=== PATIENT | male | born 1995 | race Caucasian/White ===

== ENCOUNTER 2019-08-23 15:58 | Inpatient (IN) | payer MEDICAID ==
[~2019-08-23] VITALS: Ht 167.6 cm; Wt 73.5 kg
[2019-08-23] MEDS ORDERED: SERT50TA12 PO (16:59)
[2019-08-23] MEDS ORDERED: RISP.5 PO (16:59)
[2019-08-23 17:25] LABS: BASOPHILS % (AUTO) 0.5 % (0.0-2.0); EOSINOPHILS % (AUTO) 0.3 % (1.0-6.0); HEMATOCRIT 44.8 % (41-53); HEMOGLOBIN 15.1 g/dL (13.5-17.5); LYMPHOCYTES # (AUTO) 2.3 K/uL (1.0-4.8); LYMPHOCYTES % (AUTO) 14.3 % (22.0-44.0); MEAN CORPUSCULAR HEMOGLOBIN 29.4 pg (26.0-34.0); MEAN CORPUSCULAR HGB CONC 33.7 G/dL (31.0-37.0); MEAN CORPUSCULAR VOLUME 87 fL (80-100); MONOCYTES % (AUTO) 6.5 % (2.0-9.0); NEUTROPHILS # (AUTO) 12.7 K/uL (1.8-7.7); NEUTROPHILS % (AUTO) 78.4 % (40.0-70.0); PLATELET COUNT (AUTO) 298 K/uL (150-450); RED BLOOD CELL COUNT(AUTO) 5.13 MIL/uL (4.50-5.90); RED CELL DISTRIBUTION WIDTH 13.9 % (11.5-14.5)
[2019-08-23 17:44] LABS: ANION GAP 13 mmol/L (8-16); CALCIUM, TOTAL 9.7 mg/dL (8.8-10.5); CARBON DIOXIDE 27 mmol/L (22-29); CHLORIDE 104 mmol/L (98-107); CREATININE 1.05 mg/dL (0.60-1.30); GLOMERULAR FILTR. RATE CALC > 60 mL/min (>60); GLUCOSE,RANDOM 98 mg/dL (70-110); POTASSIUM 4.1 mmol/L (3.5-5.1); SODIUM SERUM 144 mmol/L (136-145); UREA NITROGEN, BLOOD 19 mg/dL (7-18)
[2019-08-23 17:48] LABS: ALANINE AMINOTRANSFERASE 73 U/L (12-78); ALBUMIN 4.2 g/dL (3.4-5.0); ALKALINE PHOSPHATASE 62 U/L (46-116); ASPARTATE AMINOTRANSFERASE 66 U/L (15-37); BILIRUBIN,TOTAL 0.4 mg/dL (0.1-1.0); TOTAL PROTEIN, SERUM 8.2 g/dL (6.4-8.2)
[2019-08-23] MEDS ORDERED: TUBERCULIN, PURIFIED PROTEIN DERIVATIVE 5 TU/0.1 ML SYRINGE ID ONE (18:00)
[2019-08-23] MEDS ORDERED: GuaiFENesin/D-METHORPHAN [SUGAR-FREE] 200-20MG/10 ML SYRUP UDCUP PO PRN (18:00)
[2019-08-23] MEDS ORDERED: OLANZapine 5 MG RAPDIS TABLET PO PRN (18:00)
[2019-08-23] MEDS ORDERED: HydrOXYzine PAMOATE 50 MG CAPSULE PO PRN (18:00)
[2019-08-23] MEDS ORDERED: PROMETHAZINE HCL 25 MG TABLET PO PRN (18:00)
[2019-08-23] MEDS ORDERED: MAG HYDROX/AL HYDROX/SIMETH ES 30 ML SUSPENSION UDCUP PO PRN (18:00)
[2019-08-23] MEDS ORDERED: MAGNESIUM HYDROXIDE SUSPENSION 30 ML UDCUP PO PRN (18:00)
[2019-08-23 20:51] VITALS: BP 136/73
[2019-08-23] MEDS: OLANZapine 5 MG RAPDIS TABLET PO SCH (21:01)
[2019-08-23] MEDS: LORazepam 2 MG TABLET PO PRN (21:01)
[2019-08-23] MEDS: THIAMINE HCL 100 MG TABLET PO SCH (21:01)
[2019-08-24] MEDS ORDERED: INFLUENZA VIRUS VACCINE QVS 2019-20 (3YR+)/PF 60 MCG/0.5 ML SYRINGE IM ONE (04:30)
[2019-08-24 05:50] VITALS: BP 100/56
[2019-08-24 07:51] LABS: HEMOGLOBIN A1C 5.4 % (4.5-6.2)
[2019-08-24 08:15] VITALS: BP 137/76
[2019-08-24 08:15] LABS: CHOL/HDL RATIO 2.6 (4.2-7.3); FREE T4 (FREE THYROXINE) 1.19 ng/dL (0.76-1.46); THYROID STIMULATING HORMONE 3.02 uIU/mL (0.36-3.74)
[2019-08-24] MEDS: NALTREXONE HCL 50 MG TABLET PO SCH (08:40)
[2019-08-24] MEDS: FOLIC ACID 1 MG TABLET PO SCH (08:40)
[2019-08-24] MEDS: THIAMINE HCL 100 MG TABLET PO SCH ×2 (08:40→16:26)
[2019-08-24] MEDS: MULTIVITAMINS WITH MINERALS, THERAPEUTIC TABLET PO SCH (08:40)
[2019-08-24 16:00] VITALS: BP 121/73
[2019-08-24] MEDS: LORazepam 2 MG TABLET PO PRN (16:26)
[2019-08-24] MEDS: OLANZapine 5 MG RAPDIS TABLET PO SCH (21:01)
[2019-08-25 02:16] VITALS: BP 111/73
[2019-08-25 08:12] VITALS: BP 103/51
[2019-08-25 08:20] LABS: BASOPHILS % (AUTO) 0.9 % (0.0-2.0); HEMOGLOBIN 14.8 g/dL (13.5-17.5); LYMPHOCYTES # (AUTO) 2.2 K/uL (1.0-4.8); LYMPHOCYTES % (AUTO) 22.8 % (22.0-44.0); MEAN CORPUSCULAR HEMOGLOBIN 29.6 pg (26.0-34.0); MEAN CORPUSCULAR HGB CONC 33.6 G/dL (31.0-37.0); MEAN CORPUSCULAR VOLUME 88 fL (80-100); MONOCYTES # (AUTO) 0.6 K/uL (0.1-1.0); MONOCYTES % (AUTO) 6.4 % (2.0-9.0); NEUTROPHILS # (AUTO) 6.3 K/uL (1.8-7.7); NEUTROPHILS % (AUTO) 66.9 % (40.0-70.0); PLATELET COUNT (AUTO) 237 K/uL (150-450); RED CELL DISTRIBUTION WIDTH 13.9 % (11.5-14.5)
[2019-08-25] MEDS: NALTREXONE HCL 50 MG TABLET PO SCH (08:38)
[2019-08-25] MEDS: THIAMINE HCL 100 MG TABLET PO SCH ×2 (08:38→16:30)
[2019-08-25] MEDS: MULTIVITAMINS WITH MINERALS, THERAPEUTIC TABLET PO SCH (08:38)
[2019-08-25] MEDS: ATOMOXETINE HCL 40 MG CAPSULE PO SCH (08:38)
[2019-08-25] MEDS: FOLIC ACID 1 MG TABLET PO SCH (08:39)
[2019-08-25 16:00] VITALS: BP 117/79
[2019-08-25] MEDS: LORazepam 2 MG TABLET PO PRN (16:30)
[2019-08-25] MEDS: OLANZapine 5 MG RAPDIS TABLET PO SCH (20:46)
[2019-08-26 03:48] VITALS: BP 118/73
[2019-08-26 08:00] VITALS: BP 111/68
[2019-08-26] MEDS: MULTIVITAMINS WITH MINERALS, THERAPEUTIC TABLET PO SCH (08:23)
[2019-08-26] MEDS: THIAMINE HCL 100 MG TABLET PO SCH ×2 (08:23→16:13)
[2019-08-26] MEDS: BuPROPion HCL XL 150 MG ER TABLET PO SCH (08:23)
[2019-08-26] MEDS: FOLIC ACID 1 MG TABLET PO SCH (08:23)
[2019-08-26] MEDS: NALTREXONE HCL 50 MG TABLET PO SCH (08:23)
[2019-08-26] MEDS: ATOMOXETINE HCL 40 MG CAPSULE PO SCH (08:24)
[2019-08-26 16:11] VITALS: BP 129/76
[2019-08-26] MEDS: LORazepam 2 MG TABLET PO PRN (16:13)
[2019-08-26 17:00] VITALS: BP 109/78
[2019-08-26] MEDS: GABAPENTIN 300 MG CAPSULE PO SCH ×2 (17:58→21:05)
[2019-08-26] MEDS: ZOLPIDEM TARTRATE 10 MG TABLET PO PRN (20:41)
[2019-08-26] MEDS: OLANZapine 10 MG RAPDIS TABLET PO SCH (21:05)
[2019-08-27 04:15] VITALS: BP 137/65
[2019-08-27] MEDS: MULTIVITAMINS WITH MINERALS, THERAPEUTIC TABLET PO SCH (08:08)
[2019-08-27] MEDS: ATOMOXETINE HCL 40 MG CAPSULE PO SCH (08:08)
[2019-08-27] MEDS: FOLIC ACID 1 MG TABLET PO SCH (08:08)
[2019-08-27] MEDS: NALTREXONE HCL 50 MG TABLET PO SCH (08:08)
[2019-08-27] MEDS: BuPROPion HCL XL 150 MG ER TABLET PO SCH (08:08)
[2019-08-27] MEDS: GABAPENTIN 300 MG CAPSULE PO SCH ×4 (08:08→21:25)
[2019-08-27] MEDS: THIAMINE HCL 100 MG TABLET PO SCH ×2 (08:08→16:06)
[2019-08-27 08:27] VITALS: BP 110/76
[2019-08-27] MEDS: LORazepam 2 MG TABLET PO PRN (16:06)
[2019-08-27 16:13] VITALS: BP 130/80
[2019-08-27] MEDS: OLANZapine 10 MG RAPDIS TABLET PO SCH (21:25)
[2019-08-28 06:39] VITALS: BP 121/80
[2019-08-28 08:00] VITALS: BP 153/117
[2019-08-28] MEDS: MULTIVITAMINS WITH MINERALS, THERAPEUTIC TABLET PO SCH (08:04)
[2019-08-28] MEDS: NALTREXONE HCL 50 MG TABLET PO SCH (08:04)
[2019-08-28] MEDS: FOLIC ACID 1 MG TABLET PO SCH (08:04)
[2019-08-28] MEDS: GABAPENTIN 300 MG CAPSULE PO SCH ×4 (08:04→20:46)
[2019-08-28] MEDS: BuPROPion HCL XL 150 MG ER TABLET PO SCH ×2 (08:04→09:05)
[2019-08-28] MEDS: THIAMINE HCL 100 MG TABLET PO SCH ×2 (08:04→16:11)
[2019-08-28] MEDS: ATOMOXETINE HCL 10 MG CAPSULE PO SCH (08:05)
[2019-08-28] MEDS: NICOTINE 21 MG/24 HOUR PATCH TD PRN (09:02)
[2019-08-28 16:09] VITALS: BP 125/79
[2019-08-28] MEDS: LORazepam 2 MG TABLET PO PRN (16:11)
[2019-08-28] MEDS: OLANZapine 10 MG RAPDIS TABLET PO SCH (20:46)
[2019-08-28] MEDS: ZOLPIDEM TARTRATE 10 MG TABLET PO PRN (20:47)
[2019-08-29] MEDS: NALTREXONE HCL 50 MG TABLET PO SCH (09:48)
[2019-08-29] MEDS: FOLIC ACID 1 MG TABLET PO SCH (09:48)
[2019-08-29] MEDS: THIAMINE HCL 100 MG TABLET PO SCH ×2 (09:48→16:24)
[2019-08-29] MEDS: MULTIVITAMINS WITH MINERALS, THERAPEUTIC TABLET PO SCH (09:49)
[2019-08-29] MEDS: BuPROPion HCL XL 150 MG ER TABLET PO SCH (09:49)
[2019-08-29] MEDS: GABAPENTIN 300 MG CAPSULE PO SCH ×4 (09:49→20:31)
[2019-08-29] MEDS: ATOMOXETINE HCL 10 MG CAPSULE PO SCH (09:50)
[2019-08-29 16:05] VITALS: BP 107/68
[2019-08-29] MEDS: LORazepam 2 MG TABLET PO PRN (16:25)
[2019-08-29] MEDS: ZOLPIDEM TARTRATE 10 MG TABLET PO PRN (20:31)
[2019-08-29] MEDS: OLANZapine 10 MG RAPDIS TABLET PO SCH (20:31)
[2019-08-30 07:08] VITALS: BP 145/76
[2019-08-30] MEDS: FOLIC ACID 1 MG TABLET PO SCH (08:28)
[2019-08-30] MEDS: NALTREXONE HCL 50 MG TABLET PO SCH (08:28)
[2019-08-30] MEDS: ATOMOXETINE HCL 10 MG CAPSULE PO SCH (08:28)
[2019-08-30] MEDS: BuPROPion HCL XL 150 MG ER TABLET PO SCH (08:28)
[2019-08-30] MEDS: MULTIVITAMINS WITH MINERALS, THERAPEUTIC TABLET PO SCH (08:28)
[2019-08-30] MEDS: GABAPENTIN 300 MG CAPSULE PO SCH ×4 (08:28→20:38)
[2019-08-30] MEDS: THIAMINE HCL 100 MG TABLET PO SCH ×2 (08:29→16:47)
[2019-08-30] MEDS: NICOTINE 21 MG/24 HOUR PATCH TD PRN (13:25)
[2019-08-30 16:07] VITALS: BP 116/68
[2019-08-30] MEDS: OLANZapine 10 MG RAPDIS TABLET PO SCH (20:38)
[2019-08-30] MEDS: ZOLPIDEM TARTRATE 10 MG TABLET PO PRN (20:38)
[2019-08-31 02:24] VITALS: BP 107/55
[2019-08-31 08:23] VITALS: BP 135/97
[2019-08-31] MEDS: NALTREXONE HCL 50 MG TABLET PO SCH (08:52)
[2019-08-31] MEDS: GABAPENTIN 300 MG CAPSULE PO SCH ×4 (08:56→20:24)
[2019-08-31] MEDS: MULTIVITAMINS WITH MINERALS, THERAPEUTIC TABLET PO SCH (08:56)
[2019-08-31] MEDS: THIAMINE HCL 100 MG TABLET PO SCH ×2 (08:57→17:31)
[2019-08-31] MEDS: FOLIC ACID 1 MG TABLET PO SCH (08:57)
[2019-08-31] MEDS: ATOMOXETINE HCL 10 MG CAPSULE PO SCH (09:04)
[2019-08-31] MEDS: BuPROPion HCL XL 150 MG ER TABLET PO SCH (09:05)
[2019-08-31 16:15] VITALS: BP 123/78
[2019-08-31] MEDS: LORazepam 2 MG TABLET PO PRN (17:32)
[2019-08-31] MEDS: NICOTINE 21 MG/24 HOUR PATCH TD PRN (18:13)
[2019-08-31] MEDS: OLANZapine 10 MG RAPDIS TABLET PO SCH (20:24)
[2019-08-31] MEDS: ZOLPIDEM TARTRATE 10 MG TABLET PO PRN (21:03)
[2019-09-01 00:13] VITALS: BP 121/80
[2019-09-01 08:10] VITALS: BP 125/80
[2019-09-01] MEDS ORDERED: ATOMOXETINE HCL 40 MG CAPSULE PO SCH (09:00)
[2019-09-01] MEDS: ACETAMINOPHEN 325 MG TABLET PO PRN ×2 (09:10→14:50)
[2019-09-01] MEDS: MULTIVITAMINS WITH MINERALS, THERAPEUTIC TABLET PO SCH (09:10)
[2019-09-01] MEDS: FOLIC ACID 1 MG TABLET PO SCH (09:11)
[2019-09-01] MEDS: GABAPENTIN 300 MG CAPSULE PO SCH ×4 (09:11→20:48)
[2019-09-01] MEDS: THIAMINE HCL 100 MG TABLET PO SCH ×2 (09:11→16:31)
[2019-09-01] MEDS: BuPROPion HCL XL 150 MG ER TABLET PO SCH (09:13)
[2019-09-01] MEDS: NALTREXONE HCL 50 MG TABLET PO SCH (09:13)
[2019-09-01 16:13] VITALS: BP 122/68
[2019-09-01] MEDS: LORazepam 2 MG TABLET PO PRN (16:32)
[2019-09-01] MEDS: OLANZapine 10 MG RAPDIS TABLET PO SCH (20:48)
[2019-09-01] MEDS: ZOLPIDEM TARTRATE 10 MG TABLET PO PRN (20:48)
[2019-09-02 05:57] VITALS: BP 105/65
[2019-09-02 08:40] VITALS: BP 146/81
[2019-09-02] MEDS: BuPROPion HCL XL 150 MG ER TABLET PO SCH (09:05)
[2019-09-02] MEDS: GABAPENTIN 300 MG CAPSULE PO SCH (09:05)
[2019-09-02] MEDS: MULTIVITAMINS WITH MINERALS, THERAPEUTIC TABLET PO SCH (09:05)
[2019-09-02] MEDS: FOLIC ACID 1 MG TABLET PO SCH (09:06)
[2019-09-02] MEDS: NALTREXONE HCL 50 MG TABLET PO SCH (09:07)
[2019-09-02] MEDS: ATOMOXETINE HCL 25 MG CAPSULE PO SCH (09:07)
[2019-09-02] MEDS: THIAMINE HCL 100 MG TABLET PO SCH (09:07)
[2019-09-02] MEDS: ACETAMINOPHEN 325 MG TABLET PO PRN (10:24)
[2019-09-02] MEDS: LORazepam 2 MG TABLET PO PRN ×2 (12:54→16:55)
[2019-09-02] MEDS: GABAPENTIN 400 MG CAPSULE PO SCH ×3 (13:13→20:51)
[2019-09-02] MEDS ORDERED: BENZOCAINE/MENTHOL LOZENGE PO PRN (15:00)
[2019-09-02 16:59] VITALS: BP 133/65
[2019-09-02] MEDS ORDERED: AZITHROMYCIN 250 MG TABLET PO ONE (18:00)
[2019-09-02] MEDS: OLANZapine 10 MG RAPDIS TABLET PO SCH (20:51)
[2019-09-02] MEDS: ZOLPIDEM TARTRATE 10 MG TABLET PO PRN (20:52)
[2019-09-03 06:24] VITALS: BP 128/72
[2019-09-03] MEDS: BuPROPion HCL XL 150 MG ER TABLET PO SCH (08:45)
[2019-09-03] MEDS: GABAPENTIN 400 MG CAPSULE PO SCH ×4 (08:45→20:14)
[2019-09-03] MEDS: AZITHROMYCIN 250 MG TABLET PO SCH (08:45)
[2019-09-03] MEDS: NALTREXONE HCL 50 MG TABLET PO SCH (08:45)
[2019-09-03] MEDS: ATOMOXETINE HCL 25 MG CAPSULE PO SCH (08:45)
[2019-09-03 08:47] VITALS: BP 129/78
[2019-09-03] MEDS: MULTIVITAMINS WITH MINERALS, THERAPEUTIC TABLET PO SCH (08:50)
[2019-09-03] MEDS: LORazepam 2 MG TABLET PO PRN ×2 (12:05→16:50)
[2019-09-03 16:00] VITALS: BP 111/90
[2019-09-03] MEDS: GuanFACINE HCL 1 MG TABLET PO SCH (16:50)
[2019-09-03] MEDS: NICOTINE 21 MG/24 HOUR PATCH TD PRN (16:51)
[2019-09-03] MEDS: OLANZapine 10 MG RAPDIS TABLET PO SCH (20:14)
[2019-09-03] MEDS: ZOLPIDEM TARTRATE 10 MG TABLET PO PRN (20:14)
[2019-09-04 04:41] VITALS: BP 125/76
[2019-09-04 06:00] VITALS: BP 131/77
[2019-09-04] MEDS: ACETAMINOPHEN 325 MG TABLET PO PRN (06:04)
[2019-09-04 08:31] VITALS: BP 131/77
[2019-09-04] MEDS: GABAPENTIN 400 MG CAPSULE PO SCH ×4 (08:54→21:25)
[2019-09-04] MEDS: ATOMOXETINE HCL 25 MG CAPSULE PO SCH (08:54)
[2019-09-04] MEDS: NALTREXONE HCL 50 MG TABLET PO SCH (08:54)
[2019-09-04] MEDS: GuanFACINE HCL 1 MG TABLET PO SCH ×3 (08:54→16:40)
[2019-09-04] MEDS: AZITHROMYCIN 250 MG TABLET PO SCH (08:54)
[2019-09-04] MEDS: MULTIVITAMINS WITH MINERALS, THERAPEUTIC TABLET PO SCH (08:54)
[2019-09-04] MEDS: BuPROPion HCL XL 150 MG ER TABLET PO SCH (08:54)
[2019-09-04 09:00] VITALS: BP 123/60
[2019-09-04 16:07] VITALS: BP 125/63
[2019-09-04] MEDS: LORazepam 2 MG TABLET PO PRN (16:39)
[2019-09-04] MEDS: ZOLPIDEM TARTRATE 10 MG TABLET PO PRN (21:26)
[2019-09-04] MEDS: OLANZapine 10 MG RAPDIS TABLET PO SCH (21:28)
[2019-09-05 06:21] VITALS: BP 137/68
[2019-09-05 08:15] VITALS: BP 129/63
[2019-09-05] MEDS: NALTREXONE HCL 50 MG TABLET PO SCH (08:55)
[2019-09-05] MEDS: GuanFACINE HCL 1 MG TABLET PO SCH ×3 (08:55→16:20)
[2019-09-05] MEDS: BuPROPion HCL XL 150 MG ER TABLET PO SCH (08:55)
[2019-09-05] MEDS: ATOMOXETINE HCL 25 MG CAPSULE PO SCH (08:55)
[2019-09-05] MEDS: GABAPENTIN 400 MG CAPSULE PO SCH ×4 (08:55→20:50)
[2019-09-05] MEDS: MULTIVITAMINS WITH MINERALS, THERAPEUTIC TABLET PO SCH (08:55)
[2019-09-05] MEDS: AZITHROMYCIN 250 MG TABLET PO SCH (08:59)
[2019-09-05] MEDS: LOPERAMIDE HCL 2 MG CAPSULE PO PRN ×2 (09:53→17:00)
[2019-09-05] MEDS: LORazepam 2 MG TABLET PO PRN ×2 (12:34→17:01)
[2019-09-05 16:45] VITALS: BP 112/69
[2019-09-05] MEDS: LACTOBACILLUS ACIDOPHILUS/BULGARICUS TABLET PO SCH (20:50)
[2019-09-05] MEDS: ZOLPIDEM TARTRATE 10 MG TABLET PO PRN (20:51)
[2019-09-05] MEDS: OLANZapine 10 MG RAPDIS TABLET PO SCH (20:51)
[2019-09-06 02:00] VITALS: BP 121/67
[2019-09-06 08:20] VITALS: BP 149/67
[2019-09-06] MEDS: MULTIVITAMINS WITH MINERALS, THERAPEUTIC TABLET PO SCH (09:56)
[2019-09-06] MEDS: ATOMOXETINE HCL 25 MG CAPSULE PO SCH (09:57)
[2019-09-06] MEDS: LACTOBACILLUS ACIDOPHILUS/BULGARICUS TABLET PO SCH ×2 (09:57→17:42)
[2019-09-06] MEDS: BuPROPion HCL XL 150 MG ER TABLET PO SCH (09:58)
[2019-09-06] MEDS: GABAPENTIN 400 MG CAPSULE PO SCH ×3 (09:59→17:42)
[2019-09-06] MEDS: NALTREXONE HCL 50 MG TABLET PO SCH (10:00)
[2019-09-06] MEDS: GuanFACINE HCL 1 MG TABLET PO SCH ×3 (10:00→17:42)
[2019-09-06] MEDS: AZITHROMYCIN 250 MG TABLET PO SCH (10:01)
[2019-09-06] MEDS ORDERED: BUPR-47 PO (15:03)
[2019-09-06] MEDS ORDERED: GABA-533 PO (15:03)
[2019-09-06] MEDS ORDERED: OLAN10TA22 PO (15:03)
[2019-09-06] MEDS ORDERED: ATOM25CA8 PO (15:03)
[2019-09-06] MEDS ORDERED: NALT50TA PO (15:03)
[2019-09-06] MEDS ORDERED: GUAN1TAB2 PO (15:03)
[2019-09-06 16:14] VITALS: BP 112/69
[2019-09-06] MEDS: LOPERAMIDE HCL 2 MG CAPSULE PO PRN (17:43)
== END 2019-09-06 18:10 | disposition home or self-care (01) | DRG 750 ==
LOC: EMS 16:03 → B3A 18:36
PROVIDERS: ADMIT Psychiatry & Neurology Psychiatry; ATTEND Psychiatry & Neurology Psychiatry
DX: F25.0 Schizoaffective disorder, bipolar type (principal); R45.850 Homicidal ideations; F15.90 Other stimulant use, unspecified, uncomplicated; F41.9 Anxiety disorder, unspecified; F25.1 Schizoaffective disorder, depressive type; F17.210 Nicotine dependence, cigarettes, uncomplicated; F90.9 Attention-deficit hyperactivity disorder, unspecified type; F19.20 Other psychoactive substance dependence, uncomplicated; Z59.0 Homelessness; Z79.899 Other long term (current) drug therapy; Z91.19 Patient's noncompliance with other medical treatment and regimen; Z91.5 Personal history of self-harm; Z28.21 Immunization not carried out because of patient refusal
CPT/HCPCS: 83036; 84439; 84443; 86592; 87081; 90686; G0480

== ENCOUNTER 2020-07-05 13:58 | Inpatient (IN) | payer MEDICAID, OTHER ==
[~2020-07-05] VITALS: Ht 162.6 cm; Wt 81.1 kg
[~2020-07-05 13:58] MED LIST: ATOM25CA8 PO; BUPR-47 PO; GABA-533 PO; GUAN1TAB2 PO; NALT50TA PO; OLAN10TA22 PO
[2020-07-05 15:39] LABS: HEMATOCRIT 45.1 % (41-53); HEMOGLOBIN 15.2 g/dL (13.5-17.5); MEAN CORPUSCULAR HGB CONC 33.7 G/dL (31.0-37.0); MEAN CORPUSCULAR VOLUME 89 fL (80-100); PLATELET COUNT (AUTO) 253 K/uL (150-450); RED BLOOD CELL COUNT(AUTO) 5.06 MIL/uL (4.50-5.90)
[2020-07-05 15:49] LABS: ANION GAP 11 mmol/L (8-16); CALCIUM, TOTAL 9.1 mg/dL (8.8-10.5); CARBON DIOXIDE 28 mmol/L (22-29); CHLORIDE 106 mmol/L (98-107); CREATININE 1.05 mg/dL (0.60-1.30); GLOMERULAR FILTR. RATE CALC > 60 mL/min (>60); GLUCOSE,RANDOM 95 mg/dL (70-110); POTASSIUM 4.4 mmol/L (3.5-5.1); SODIUM SERUM 145 mmol/L (136-145); UREA NITROGEN, BLOOD 16 mg/dL (7-18)
[2020-07-05 15:55] LABS: ALANINE AMINOTRANSFERASE 23 U/L (12-78); ALBUMIN 3.9 g/dL (3.4-5.0); ALKALINE PHOSPHATASE 66 U/L (46-116); ASPARTATE AMINOTRANSFERASE 18 U/L (15-37); BILIRUBIN,TOTAL 0.4 mg/dL (0.1-1.0)
[2020-07-05 17:00] LABS: BAND NEUTROPHILS % (MANUAL) 0 % (0-5)
[2020-07-05 17:01] LABS: BASOPHILS % (MANUAL) 1 % (0-2); EOSINOPHILS % (MANUAL) 1 % (1-6); LYMPHOCYTES % (MANUAL) 24 % (22-44); MONOCYTES % (MANUAL) 5 % (2-9); SEGMENTED NEUTROPHILS % 69 % (40-70)
[2020-07-05] MEDS ORDERED: ZOLPIDEM TARTRATE 10 MG TABLET PO PRN (18:45)
[2020-07-05] MEDS ORDERED: HALOPERIDOL 5 MG TABLET PO PRN (18:45)
[2020-07-05] MEDS ORDERED: LORazepam 2 MG TABLET PO PRN (18:45)
[2020-07-05 19:00] LABS: COVID AG,FIA SOURCE NASOPHARYNGEAL
[2020-07-05 21:39] VITALS: BP 149/86
[2020-07-06 03:44] VITALS: BP 150/86
[2020-07-06 07:13] LABS: CHOL/HDL RATIO 2.9 (4.2-7.3)
[2020-07-06 07:35] LABS: FREE T4 (FREE THYROXINE) 0.96 ng/dL (0.76-1.46); THYROID STIMULATING HORMONE 0.64 uIU/mL (0.36-3.74)
[2020-07-06 08:55] VITALS: BP 145/86
[2020-07-06 16:00] VITALS: BP 125/61
[2020-07-06] MEDS: GABAPENTIN 400 MG CAPSULE PO SCH ×2 (16:55→20:35)
[2020-07-06] MEDS: OLANZapine 5 MG TABLET PO SCH (16:55)
[2020-07-07] MEDS: BuPROPion HCL XL 150 MG ER TABLET PO SCH (09:30)
[2020-07-07] MEDS: OLANZapine 5 MG TABLET PO SCH ×2 (09:30→17:00)
[2020-07-07] MEDS: GABAPENTIN 400 MG CAPSULE PO SCH ×4 (09:31→21:00)
[2020-07-07 09:43] VITALS: BP 125/78
[2020-07-07 16:54] VITALS: BP 156/98
[2020-07-08] MEDS: GABAPENTIN 400 MG CAPSULE PO SCH ×2 (08:37→12:36)
[2020-07-08] MEDS: BuPROPion HCL XL 150 MG ER TABLET PO SCH (08:37)
[2020-07-08] MEDS: OLANZapine 5 MG TABLET PO SCH (08:37)
[2020-07-08] MEDS ORDERED: OLAN5TAB2 PO (13:12)
== END 2020-07-08 14:00 | disposition home or self-care (01) | DRG 750 ==
LOC: EMS 14:05 → 3EI 18:32
PROVIDERS: ADMIT Psychiatry & Neurology Psychiatry; ATTEND Psychiatry & Neurology Psychiatry
DX: F25.0 Schizoaffective disorder, bipolar type (principal); F43.10 Post-traumatic stress disorder, unspecified; G47.00 Insomnia, unspecified; R45.851 Suicidal ideations; F17.210 Nicotine dependence, cigarettes, uncomplicated; Z20.828 Contact with and (suspected) exposure to other viral communicable diseases; F32.9 Major depressive disorder, single episode, unspecified; F41.9 Anxiety disorder, unspecified; R03.0 Elevated blood-pressure reading, without diagnosis of hypertension; F99 Mental disorder, not otherwise specified; R10.13 Epigastric pain; Z79.899 Other long term (current) drug therapy
CPT/HCPCS: 84439; 84443; 87426; G0480

== ENCOUNTER 2020-07-09 17:47 | Inpatient (IN) | payer MEDICAID, OTHER ==
[~2020-07-09] VITALS: Ht 167.6 cm; Wt 82.0 kg
[~2020-07-09 17:47] MED LIST changes: -ATOM25CA8 PO; -GUAN1TAB2 PO; -NALT50TA PO; -OLAN10TA22 PO; +OLAN5TAB2 PO
[2020-07-09] MEDS ORDERED: HALOPERIDOL 5 MG TABLET PO ONE (18:45)
[2020-07-09] MEDS ORDERED: LORazepam 2 MG TABLET PO ONE (18:45)
[2020-07-09 19:18] LABS: BASOPHILS % (AUTO) 0.5 % (0.0-2.0); EOSINOPHILS % (AUTO) 0.1 % (1.0-6.0); HEMATOCRIT 49.3 % (41-53); HEMOGLOBIN 16.7 g/dL (13.5-17.5); LYMPHOCYTES # (AUTO) 2.5 K/uL (1.0-4.8); LYMPHOCYTES % (AUTO) 14.5 % (22.0-44.0); MEAN CORPUSCULAR HGB CONC 33.9 G/dL (31.0-37.0); MEAN CORPUSCULAR VOLUME 88 fL (80-100); MONOCYTES # (AUTO) 1.2 K/uL (0.1-1.0); MONOCYTES % (AUTO) 7.2 % (2.0-9.0); NEUTROPHILS # (AUTO) 13.3 K/uL (1.8-7.7); NEUTROPHILS % (AUTO) 77.7 % (40.0-70.0); PLATELET COUNT (AUTO) 251 K/uL (150-450); RED BLOOD CELL COUNT(AUTO) 5.58 MIL/uL (4.50-5.90); RED CELL DISTRIBUTION WIDTH 13.9 % (11.5-14.5)
[2020-07-09 19:27] LABS: ANION GAP 10 mmol/L (8-16); CARBON DIOXIDE 29 mmol/L (22-29); CHLORIDE 98 mmol/L (98-107); CREATININE 1.19 mg/dL (0.60-1.30); GLOMERULAR FILTR. RATE CALC > 60 mL/min (>60); GLUCOSE,RANDOM 86 mg/dL (70-110); POTASSIUM 4.3 mmol/L (3.5-5.1); SODIUM SERUM 137 mmol/L (136-145); UREA NITROGEN, BLOOD 19 mg/dL (7-18)
[2020-07-09 19:33] LABS: ALANINE AMINOTRANSFERASE 86 U/L (12-78); ALBUMIN 4.4 g/dL (3.4-5.0); ALKALINE PHOSPHATASE 69 U/L (46-116); ASPARTATE AMINOTRANSFERASE 35 U/L (15-37); BILIRUBIN,TOTAL 0.5 mg/dL (0.1-1.0); TOTAL PROTEIN, SERUM 8.2 g/dL (6.4-8.2)
[2020-07-09 20:34] LABS: COVID AG,FIA SOURCE NASOPHARYNGEAL
[2020-07-09 21:04] LABS: CREATINE KINASE, TOTAL ONLY 574 U/L (39-308)
[2020-07-09] MEDS ORDERED: SODIUM CHLORIDE 0.9% 1,000 ML IV ONE (21:45)
[2020-07-09 22:37] LABS: INFLUENZA TYPE A NEGATIVE FOR TYPE A (NEGATIVE); INFLUENZA TYPE B NEGATIVE FOR TYPE B (NEGATIVE)
[2020-07-09] MEDS ORDERED: HALOPERIDOL 5 MG TABLET PO PRN (22:45)
[2020-07-10] MEDS ORDERED: SODIUM CHLORIDE 0.9% 1,000 ML IV ONE (00:45)
[2020-07-10 03:02] LABS: BASOPHILS % (AUTO) 0.7 % (0.0-2.0); HEMATOCRIT 45.1 % (41-53); LYMPHOCYTES # (AUTO) 2.7 K/uL (1.0-4.8); LYMPHOCYTES % (AUTO) 24.4 % (22.0-44.0); MEAN CORPUSCULAR HEMOGLOBIN 29.9 pg (26.0-34.0); MEAN CORPUSCULAR HGB CONC 33.2 G/dL (31.0-37.0); MEAN CORPUSCULAR VOLUME 90 fL (80-100); MONOCYTES % (AUTO) 9.2 % (2.0-9.0); NEUTROPHILS # (AUTO) 6.9 K/uL (1.8-7.7); NEUTROPHILS % (AUTO) 63.7 % (40.0-70.0); PLATELET COUNT (AUTO) 198 K/uL (150-450); RED CELL DISTRIBUTION WIDTH 13.9 % (11.5-14.5)
[2020-07-10 05:19] VITALS: BP 117/72
[2020-07-10] MEDS ORDERED: INFLUENZA VIRUS VACCINE QVS 2020-21 (6MO+)/PF 60 MCG/0.5 ML SYRINGE IM ONE (05:45)
[2020-07-10] MEDS ORDERED: ONDANSETRON HCL 4 MG TABLET PO PRN (07:45)
[2020-07-10] MEDS ORDERED: ACETAMINOPHEN 325 MG TABLET PO PRN (07:45)
[2020-07-10] MEDS ORDERED: LOPERAMIDE HCL 2 MG CAPSULE PO PRN (07:45)
[2020-07-10] MEDS ORDERED: MAG HYDROX/AL HYDROX/SIMETH ES 30 ML SUSPENSION UDCUP PO PRN (07:45)
[2020-07-10] MEDS ORDERED: NICOTINE 14 MG/24 HOUR PATCH TD PRN (07:45)
[2020-07-10] MEDS ORDERED: GuaiFENesin/D-METHORPHAN [SUGAR-FREE] 200-20MG/10 ML SYRUP UDCUP PO PRN (07:45)
[2020-07-10] MEDS ORDERED: IBUPROFEN 400 MG TABLET PO PRN (07:45)
[2020-07-10] MEDS ORDERED: ALBUTEROL SULFATE HFA 90 MCG/PUFF 8 GM INHALER IH PRN (07:45)
[2020-07-10] MEDS ORDERED: PETROLATUM,WHITE 28 GM JELLY TP PRN (07:45)
[2020-07-10] MEDS ORDERED: CloNIDine HCL 0.1 MG TABLET PO PRN (07:45)
[2020-07-10] MEDS ORDERED: DOCUSATE SODIUM 100 MG CAPSULE PO PRN (07:45)
[2020-07-10] MEDS ORDERED: MAGNESIUM HYDROXIDE SUSPENSION 30 ML UDCUP PO PRN (07:45)
[2020-07-10] MEDS: BuPROPion HCL XL 150 MG ER TABLET PO SCH (08:04)
[2020-07-10] MEDS: GABAPENTIN 400 MG CAPSULE PO SCH ×4 (08:04→21:06)
[2020-07-10] MEDS: OLANZapine 5 MG TABLET PO SCH ×2 (08:04→16:38)
[2020-07-10 08:08] VITALS: BP 135/71
[2020-07-10 08:31] LABS: CHOL/HDL RATIO 3.6 (4.2-7.3)
[2020-07-10 16:05] VITALS: BP 118/70
[2020-07-10 22:30] LABS: COVID AG,FIA SOURCE NASOPHARYNGEAL
[2020-07-11 04:05] VITALS: BP 101/68
[2020-07-11 08:07] VITALS: BP 123/75
[2020-07-11] MEDS: BuPROPion HCL XL 150 MG ER TABLET PO SCH (08:08)
[2020-07-11] MEDS: GABAPENTIN 400 MG CAPSULE PO SCH ×4 (08:08→20:23)
[2020-07-11] MEDS: OLANZapine 5 MG TABLET PO SCH ×2 (08:08→16:06)
[2020-07-11 16:06] VITALS: BP 117/66
[2020-07-11] MEDS: LORazepam 2 MG TABLET PO PRN (16:06)
[2020-07-11] MEDS: ZOLPIDEM TARTRATE 10 MG TABLET PO PRN (20:23)
[2020-07-12 02:13] VITALS: BP 128/69
[2020-07-12 08:07] VITALS: BP 109/79
[2020-07-12] MEDS: GABAPENTIN 400 MG CAPSULE PO SCH ×4 (08:51→20:33)
[2020-07-12] MEDS: BuPROPion HCL XL 150 MG ER TABLET PO SCH (08:51)
[2020-07-12] MEDS: OLANZapine 5 MG TABLET PO SCH ×2 (08:51→16:27)
[2020-07-12 16:27] VITALS: BP 131/80
[2020-07-12] MEDS: LORazepam 2 MG TABLET PO PRN (16:27)
[2020-07-13 02:25] VITALS: BP 116/68
[2020-07-13 08:06] VITALS: BP 130/68
[2020-07-13] MEDS: GABAPENTIN 400 MG CAPSULE PO SCH ×4 (08:44→21:03)
[2020-07-13] MEDS: BuPROPion HCL XL 150 MG ER TABLET PO SCH (08:45)
[2020-07-13] MEDS: OLANZapine 5 MG TABLET PO SCH ×2 (08:45→16:44)
[2020-07-13 16:07] VITALS: BP 139/87
[2020-07-14 03:38] VITALS: BP 111/66
[2020-07-14] MEDS: GABAPENTIN 400 MG CAPSULE PO SCH ×4 (08:52→20:47)
[2020-07-14] MEDS: BuPROPion HCL XL 150 MG ER TABLET PO SCH (08:53)
[2020-07-14] MEDS: OLANZapine 5 MG TABLET PO SCH ×2 (08:53→17:18)
[2020-07-14 09:55] VITALS: BP 116/77
[2020-07-14 16:17] VITALS: BP 116/75
[2020-07-14] MEDS: LORazepam 2 MG TABLET PO PRN (20:53)
[2020-07-15 04:59] VITALS: BP 111/78
[2020-07-15 08:09] VITALS: BP 130/77
[2020-07-15] MEDS: BuPROPion HCL XL 150 MG ER TABLET PO SCH (08:31)
[2020-07-15] MEDS: OLANZapine 5 MG TABLET PO SCH ×2 (08:31→16:20)
[2020-07-15] MEDS: GABAPENTIN 400 MG CAPSULE PO SCH ×4 (08:31→20:29)
[2020-07-15] MEDS: LORazepam 2 MG TABLET PO PRN (16:20)
[2020-07-15 16:25] VITALS: BP 128/72
[2020-07-15] MEDS: ZOLPIDEM TARTRATE 10 MG TABLET PO PRN (20:29)
[2020-07-16 04:02] VITALS: BP 131/76
[2020-07-16 08:09] VITALS: BP 124/71
[2020-07-16] MEDS: OLANZapine 5 MG TABLET PO SCH ×2 (08:22→16:25)
[2020-07-16] MEDS: BuPROPion HCL XL 150 MG ER TABLET PO SCH (08:22)
[2020-07-16] MEDS: GABAPENTIN 400 MG CAPSULE PO SCH ×4 (08:22→20:48)
[2020-07-16 16:21] VITALS: BP 118/74
[2020-07-16] MEDS: LORazepam 2 MG TABLET PO PRN (16:25)
[2020-07-17 06:55] VITALS: BP 123/78
[2020-07-17 08:09] VITALS: BP 128/79
[2020-07-17] MEDS: BuPROPion HCL XL 150 MG ER TABLET PO SCH (08:28)
[2020-07-17] MEDS: GABAPENTIN 400 MG CAPSULE PO SCH ×4 (08:28→20:33)
[2020-07-17] MEDS: OLANZapine 5 MG TABLET PO SCH ×2 (08:28→16:11)
[2020-07-17] MEDS: LORazepam 2 MG TABLET PO PRN (16:11)
[2020-07-17 16:18] VITALS: BP 137/83
[2020-07-18 03:30] VITALS: BP 123/78
[2020-07-18 08:38] VITALS: BP 147/90
[2020-07-18] MEDS: OLANZapine 5 MG TABLET PO SCH (09:33)
[2020-07-18] MEDS: GABAPENTIN 400 MG CAPSULE PO SCH ×2 (09:33→12:47)
[2020-07-18] MEDS: BuPROPion HCL XL 150 MG ER TABLET PO SCH (09:33)
== END 2020-07-18 13:40 | disposition home or self-care (01) | DRG 750 ==
LOC: EMS 17:48 → B3A 22:42
PROVIDERS: ADMIT Psychiatry & Neurology Psychiatry; ATTEND Psychiatry & Neurology Psychiatry
DX: F25.0 Schizoaffective disorder, bipolar type (principal); Z23 Encounter for immunization; Z20.828 Contact with and (suspected) exposure to other viral communicable diseases; F12.90 Cannabis use, unspecified, uncomplicated; F15.90 Other stimulant use, unspecified, uncomplicated; F17.200 Nicotine dependence, unspecified, uncomplicated; F41.9 Anxiety disorder, unspecified; R45.851 Suicidal ideations; R00.0 Tachycardia, unspecified
CPT/HCPCS: 87081; 87426; 87804; 90686; G0480; J7030; 36415-L1; 36415-TC; 71045-TC; 80061-TC; G0008

== ENCOUNTER 2020-10-08 19:23 | Inpatient (IN) | payer MEDICAID, OTHER ==
[~2020-10-08] VITALS: Ht 177.8 cm; Wt 80.7 kg
[~2020-10-08 19:23] MED LIST changes: -BUPR-47 PO; +BUPR-49 PO
[2020-10-08 20:49] LABS: BASOPHILS % (AUTO) 0.8 % (0.0-2.0); EOSINOPHILS % (AUTO) 1.7 % (1.0-6.0); HEMOGLOBIN 14.7 g/dL (13.5-17.5); LYMPHOCYTES # (AUTO) 2.6 K/uL (1.0-4.8); LYMPHOCYTES % (AUTO) 25.7 % (22.0-44.0); MEAN CORPUSCULAR HEMOGLOBIN 29.6 pg (26.0-34.0); MEAN CORPUSCULAR HGB CONC 34.1 G/dL (31.0-37.0); MEAN CORPUSCULAR VOLUME 87 fL (80-100); MONOCYTES # (AUTO) 0.6 K/uL (0.1-1.0); MONOCYTES % (AUTO) 5.9 % (2.0-9.0); NEUTROPHILS # (AUTO) 6.7 K/uL (1.8-7.7); NEUTROPHILS % (AUTO) 65.9 % (40.0-70.0); PLATELET COUNT (AUTO) 254 K/uL (150-450); RED BLOOD CELL COUNT(AUTO) 4.95 MIL/uL (4.50-5.90); RED CELL DISTRIBUTION WIDTH 14.6 % (11.5-14.5)
[2020-10-08 20:57] LABS: COVID AG,FIA SOURCE NASOPHARYNGEAL
[2020-10-08 21:02] LABS: ANION GAP 7 mmol/L (8-16); CALCIUM, TOTAL 9.4 mg/dL (8.8-10.5); CARBON DIOXIDE 31 mmol/L (22-29); CHLORIDE 102 mmol/L (98-107); CREATININE 1.12 mg/dL (0.60-1.30); GLOMERULAR FILTR. RATE CALC > 60 mL/min (>60); GLUCOSE,RANDOM 115 mg/dL (70-110); POTASSIUM 4.3 mmol/L (3.5-5.1); SODIUM SERUM 140 mmol/L (136-145); UREA NITROGEN, BLOOD 19 mg/dL (7-18)
[2020-10-08 21:07] LABS: ALANINE AMINOTRANSFERASE 52 U/L (12-78); ALBUMIN 3.9 g/dL (3.4-5.0); ALKALINE PHOSPHATASE 68 U/L (46-116); ASPARTATE AMINOTRANSFERASE 27 U/L (15-37); BILIRUBIN,TOTAL 0.3 mg/dL (0.1-1.0); TOTAL PROTEIN, SERUM 7.2 g/dL (6.4-8.2)
[2020-10-08] MEDS ORDERED: ZOLPIDEM TARTRATE 10 MG TABLET PO PRN (21:45)
[2020-10-08 21:59] VITALS: BP 128/76
[2020-10-09] MEDS ORDERED: MAG HYDROX/AL HYDROX/SIMETH ES 30 ML SUSPENSION UDCUP PO PRN (07:45)
[2020-10-09] MEDS ORDERED: DOCUSATE SODIUM 100 MG CAPSULE PO PRN (07:45)
[2020-10-09] MEDS ORDERED: CloNIDine HCL 0.1 MG TABLET PO PRN (07:45)
[2020-10-09] MEDS ORDERED: ALBUTEROL SULFATE HFA 90 MCG/PUFF 8 GM INHALER IH PRN (07:45)
[2020-10-09] MEDS ORDERED: LOPERAMIDE HCL 2 MG CAPSULE PO PRN (07:45)
[2020-10-09] MEDS ORDERED: IBUPROFEN 400 MG TABLET PO PRN (07:45)
[2020-10-09] MEDS ORDERED: MAGNESIUM HYDROXIDE SUSPENSION 30 ML UDCUP PO PRN (07:45)
[2020-10-09] MEDS ORDERED: NICOTINE 14 MG/24 HOUR PATCH TD PRN (07:45)
[2020-10-09] MEDS ORDERED: ACETAMINOPHEN 325 MG TABLET PO PRN (07:45)
[2020-10-09] MEDS ORDERED: GuaiFENesin/D-METHORPHAN [SUGAR-FREE] 200-20MG/10 ML SYRUP UDCUP PO PRN (07:45)
[2020-10-09] MEDS ORDERED: ONDANSETRON HCL 4 MG TABLET PO PRN (07:45)
[2020-10-09] MEDS ORDERED: PETROLATUM,WHITE 28 GM JELLY TP PRN (07:45)
[2020-10-09 08:08] LABS: CHOL/HDL RATIO 2.7 (4.2-7.3)
[2020-10-09] MEDS: NICOTINE 7 MG/24 HOUR PATCH TD SCH (08:43)
[2020-10-09 09:18] VITALS: BP 120/69
[2020-10-09] MEDS: HALOPERIDOL 5 MG TABLET PO PRN (13:20)
[2020-10-09] MEDS: BuPROPion HCL XL 150 MG ER TABLET PO SCH (13:20)
[2020-10-09] MEDS: GABAPENTIN 400 MG CAPSULE PO SCH ×3 (13:20→20:25)
[2020-10-09 16:05] VITALS: BP 127/72
[2020-10-09] MEDS: OLANZapine 10 MG TABLET PO SCH (16:46)
[2020-10-09] MEDS ORDERED: OLANZapine 5 MG TABLET PO SCH (17:00)
[2020-10-10 08:23] VITALS: BP 120/73
[2020-10-10] MEDS: BuPROPion HCL XL 150 MG ER TABLET PO SCH (08:48)
[2020-10-10] MEDS: GABAPENTIN 400 MG CAPSULE PO SCH ×4 (08:48→20:28)
[2020-10-10] MEDS: OLANZapine 10 MG TABLET PO SCH ×2 (08:49→16:32)
[2020-10-10] MEDS: NICOTINE 7 MG/24 HOUR PATCH TD SCH (08:49)
[2020-10-10 16:00] VITALS: BP 117/67
[2020-10-11 08:00] VITALS: BP 132/73
[2020-10-11] MEDS: BuPROPion HCL XL 150 MG ER TABLET PO SCH (09:02)
[2020-10-11] MEDS: GABAPENTIN 400 MG CAPSULE PO SCH ×4 (09:03→21:07)
[2020-10-11] MEDS: OLANZapine 10 MG TABLET PO SCH ×2 (09:03→16:25)
[2020-10-11] MEDS: NICOTINE 7 MG/24 HOUR PATCH TD SCH (09:03)
[2020-10-11 16:00] VITALS: BP 125/68
[2020-10-12 09:53] VITALS: BP 122/69
[2020-10-12] MEDS: GABAPENTIN 400 MG CAPSULE PO SCH ×4 (09:56→21:01)
[2020-10-12] MEDS: OLANZapine 10 MG TABLET PO SCH ×2 (09:56→16:31)
[2020-10-12] MEDS: BuPROPion HCL XL 150 MG ER TABLET PO SCH (09:56)
[2020-10-12] MEDS: NICOTINE 7 MG/24 HOUR PATCH TD SCH (10:01)
[2020-10-12 16:16] VITALS: BP 139/80
[2020-10-13] MEDS: OLANZapine 10 MG TABLET PO SCH ×2 (09:21→17:34)
[2020-10-13] MEDS: BuPROPion HCL XL 150 MG ER TABLET PO SCH (09:21)
[2020-10-13] MEDS: GABAPENTIN 400 MG CAPSULE PO SCH ×4 (09:21→20:27)
[2020-10-13] MEDS: NICOTINE 7 MG/24 HOUR PATCH TD SCH (09:25)
[2020-10-13 17:12] VITALS: BP 115/74
[2020-10-14 08:00] VITALS: BP 117/68
[2020-10-14] MEDS: OLANZapine 10 MG TABLET PO SCH ×2 (10:54→16:32)
[2020-10-14] MEDS: GABAPENTIN 400 MG CAPSULE PO SCH ×4 (10:54→20:29)
[2020-10-14] MEDS: BuPROPion HCL XL 150 MG ER TABLET PO SCH (10:54)
[2020-10-14] MEDS: NICOTINE 7 MG/24 HOUR PATCH TD SCH (10:58)
[2020-10-14 14:00] LABS: COVID AG,FIA SOURCE NASOPHARYNGEAL
[2020-10-14 19:11] VITALS: BP 119/74
[2020-10-15 09:56] VITALS: BP 126/70
[2020-10-15] MEDS: OLANZapine 10 MG TABLET PO SCH ×2 (09:59→16:03)
[2020-10-15] MEDS: GABAPENTIN 400 MG CAPSULE PO SCH ×4 (09:59→20:31)
[2020-10-15] MEDS: BuPROPion HCL XL 150 MG ER TABLET PO SCH (10:00)
[2020-10-15] MEDS: NICOTINE 7 MG/24 HOUR PATCH TD SCH (10:02)
[2020-10-15] MEDS: HALOPERIDOL 5 MG TABLET PO PRN (16:03)
[2020-10-15 16:16] VITALS: BP 110/76
[2020-10-16 06:45] VITALS: BP 128/85
[2020-10-16] MEDS: OLANZapine 10 MG TABLET PO SCH ×2 (08:16→15:58)
[2020-10-16] MEDS: GABAPENTIN 400 MG CAPSULE PO SCH ×4 (08:16→19:58)
[2020-10-16] MEDS: BuPROPion HCL XL 150 MG ER TABLET PO SCH (08:16)
[2020-10-16] MEDS: NICOTINE 7 MG/24 HOUR PATCH TD SCH (08:16)
[2020-10-16 08:30] VITALS: BP 135/85
[2020-10-16] MEDS: LORazepam 2 MG TABLET PO PRN ×2 (16:35→21:41)
[2020-10-16] MEDS: HALOPERIDOL 5 MG TABLET PO PRN (21:41)
[2020-10-16] MEDS ORDERED: LORazepam 2 MG/ML VIAL ONE (22:42)
[2020-10-16] MEDS ORDERED: DiphenhydrAMINE HCL 50 MG/ML VIAL ONE (22:42)
[2020-10-16] MEDS ORDERED: HALOPERIDOL LACTATE 5 MG/ML VIAL ONE (22:42)
[2020-10-16] MEDS ORDERED: DiphenhydrAMINE HCL 50 MG/ML VIAL IM ONE (23:00)
[2020-10-16] MEDS ORDERED: HALOPERIDOL LACTATE 5 MG/ML VIAL IM ONE (23:00)
[2020-10-16] MEDS ORDERED: LORazepam 2 MG/ML VIAL IM ONE (23:00)
[2020-10-17 04:34] VITALS: BP 133/82
[2020-10-17] MEDS: OLANZapine 10 MG TABLET PO SCH ×2 (08:37→16:47)
[2020-10-17] MEDS: GABAPENTIN 400 MG CAPSULE PO SCH ×4 (08:38→20:43)
[2020-10-17] MEDS: BuPROPion HCL XL 150 MG ER TABLET PO SCH (08:38)
[2020-10-17] MEDS: NICOTINE 7 MG/24 HOUR PATCH TD SCH (08:41)
[2020-10-17 16:59] VITALS: BP 137/85
[2020-10-18] MEDS: NICOTINE 7 MG/24 HOUR PATCH TD SCH (10:27)
[2020-10-18] MEDS: OLANZapine 10 MG TABLET PO SCH ×2 (10:27→16:42)
[2020-10-18] MEDS: BuPROPion HCL XL 150 MG ER TABLET PO SCH (10:29)
[2020-10-18] MEDS: GABAPENTIN 400 MG CAPSULE PO SCH ×5 (10:30→20:33)
[2020-10-18 11:23] VITALS: BP 103/60
[2020-10-18 16:45] VITALS: BP 121/71
[2020-10-19] MEDS: OLANZapine 10 MG TABLET PO SCH ×2 (08:56→16:22)
[2020-10-19] MEDS: BuPROPion HCL XL 150 MG ER TABLET PO SCH (08:56)
[2020-10-19] MEDS: GABAPENTIN 400 MG CAPSULE PO SCH ×4 (08:56→20:56)
[2020-10-19] MEDS: NICOTINE 7 MG/24 HOUR PATCH TD SCH (08:57)
[2020-10-19 10:22] VITALS: BP 124/71
[2020-10-19 16:27] VITALS: BP 116/73
[2020-10-20 08:26] VITALS: BP 125/82
[2020-10-20] MEDS: NICOTINE 7 MG/24 HOUR PATCH TD SCH (10:31)
[2020-10-20] MEDS: GABAPENTIN 400 MG CAPSULE PO SCH ×4 (10:32→20:46)
[2020-10-20] MEDS: OLANZapine 10 MG TABLET PO SCH ×2 (10:32→16:29)
[2020-10-20] MEDS: BuPROPion HCL XL 150 MG ER TABLET PO SCH (10:32)
[2020-10-20] MEDS: LORazepam 2 MG TABLET PO PRN (16:29)
[2020-10-20] MEDS: HALOPERIDOL 5 MG TABLET PO PRN (16:29)
[2020-10-20 16:44] VITALS: BP 122/73
[2020-10-20 16:47] VITALS: BP 127/73
[2020-10-20 21:06] LABS: COVID AG,FIA SOURCE NASOPHARYNGEAL
[2020-10-21 08:28] VITALS: BP 147/83
[2020-10-21] MEDS: OLANZapine 10 MG TABLET PO SCH ×2 (10:25→17:49)
[2020-10-21] MEDS: GABAPENTIN 400 MG CAPSULE PO SCH ×4 (10:25→21:27)
[2020-10-21] MEDS: BuPROPion HCL XL 150 MG ER TABLET PO SCH (10:25)
[2020-10-21] MEDS: NICOTINE 7 MG/24 HOUR PATCH TD SCH (10:26)
[2020-10-21 16:18] VITALS: BP 126/70
[2020-10-22 08:00] VITALS: BP 136/79
[2020-10-22] MEDS: GABAPENTIN 400 MG CAPSULE PO SCH ×4 (09:09→20:07)
[2020-10-22] MEDS: NICOTINE 7 MG/24 HOUR PATCH TD SCH (09:09)
[2020-10-22] MEDS: OLANZapine 10 MG TABLET PO SCH ×2 (09:09→16:23)
[2020-10-22] MEDS: BuPROPion HCL XL 150 MG ER TABLET PO SCH (09:09)
[2020-10-22] MEDS: LORazepam 2 MG TABLET PO PRN (10:27)
[2020-10-22 16:00] VITALS: BP 148/89
[2020-10-23 08:39] VITALS: BP 131/83
[2020-10-23] MEDS: OLANZapine 10 MG TABLET PO SCH ×2 (09:15→16:17)
[2020-10-23] MEDS: GABAPENTIN 400 MG CAPSULE PO SCH ×4 (09:15→20:47)
[2020-10-23] MEDS: BuPROPion HCL XL 150 MG ER TABLET PO SCH (09:15)
[2020-10-23] MEDS: NICOTINE 7 MG/24 HOUR PATCH TD SCH (09:16)
[2020-10-23 18:54] VITALS: BP 104/69
[2020-10-24] MEDS: BuPROPion HCL XL 150 MG ER TABLET PO SCH (08:18)
[2020-10-24] MEDS: OLANZapine 10 MG TABLET PO SCH (08:18)
[2020-10-24] MEDS: GABAPENTIN 400 MG CAPSULE PO SCH ×2 (08:18→12:10)
[2020-10-24] MEDS: NICOTINE 7 MG/24 HOUR PATCH TD SCH (08:18)
[2020-10-24 08:37] VITALS: BP 110/79
[2020-10-24] MEDS ORDERED: OLAN10TA3 PO (14:00)
== END 2020-10-24 15:30 | disposition short-term general hospital (02) | DRG 750 ==
LOC: EMS 19:24 → 3EI 21:37
PROVIDERS: ADMIT Psychiatry & Neurology Psychiatry; ATTEND Psychiatry & Neurology Psychiatry
DX: F25.0 Schizoaffective disorder, bipolar type (principal); R45.851 Suicidal ideations; R45.850 Homicidal ideations; F12.90 Cannabis use, unspecified, uncomplicated; F15.90 Other stimulant use, unspecified, uncomplicated; K59.00 Constipation, unspecified; G44.209 Tension-type headache, unspecified, not intractable; R73.9 Hyperglycemia, unspecified; F41.9 Anxiety disorder, unspecified; Z20.822 Contact with and (suspected) exposure to COVID-19
CPT/HCPCS: 83036; 87426; 99285; G0480; J1200; J1630; J2060

== ENCOUNTER 2020-12-22 12:36 | Inpatient (IN) | payer MEDICAID ==
[~2020-12-22] VITALS: Ht 175.3 cm; Wt 96.3 kg
[~2020-12-22 12:36] MED LIST changes: +OLAN10TA74 PO; -OLAN5TAB2 PO
[2020-12-22] MEDS ORDERED: ZOLPIDEM TARTRATE 10 MG TABLET PO PRN (17:00)
[2020-12-22] MEDS ORDERED: HALOPERIDOL 5 MG TABLET PO PRN (17:00)
[2020-12-22 18:14] VITALS: BP 117/72
[2020-12-23 04:10] VITALS: BP 120/68
[2020-12-23 07:36] LABS: BASOPHILS % (AUTO) 0.6 % (0.0-2.0); HEMATOCRIT 45.1 % (41-53); HEMOGLOBIN 15.4 g/dL (13.5-17.5); LYMPHOCYTES # (AUTO) 2.2 K/uL (1.0-4.8); LYMPHOCYTES % (AUTO) 27.2 % (22.0-44.0); MEAN CORPUSCULAR HEMOGLOBIN 29.5 pg (26.0-34.0); MEAN CORPUSCULAR HGB CONC 34.1 G/dL (31.0-37.0); MEAN CORPUSCULAR VOLUME 87 fL (80-100); MONOCYTES # (AUTO) 0.6 K/uL (0.1-1.0); MONOCYTES % (AUTO) 7.5 % (2.0-9.0); NEUTROPHILS # (AUTO) 4.8 K/uL (1.8-7.7); NEUTROPHILS % (AUTO) 59.7 % (40.0-70.0); PLATELET COUNT (AUTO) 219 K/uL (150-450); RED BLOOD CELL COUNT(AUTO) 5.21 MIL/uL (4.50-5.90)
[2020-12-23] MEDS ORDERED: DOCUSATE SODIUM 100 MG CAPSULE PO PRN (08:00)
[2020-12-23] MEDS ORDERED: MAG HYDROX/AL HYDROX/SIMETH ES 30 ML SUSPENSION UDCUP PO PRN (08:00)
[2020-12-23] MEDS ORDERED: ACETAMINOPHEN 325 MG TABLET PO PRN (08:00)
[2020-12-23] MEDS ORDERED: MAGNESIUM HYDROXIDE SUSPENSION 30 ML UDCUP PO PRN (08:00)
[2020-12-23] MEDS ORDERED: ONDANSETRON HCL 4 MG TABLET PO PRN (08:00)
[2020-12-23] MEDS ORDERED: GuaiFENesin/D-METHORPHAN [SUGAR-FREE] 200-20MG/10 ML SYRUP UDCUP PO PRN (08:00)
[2020-12-23] MEDS ORDERED: PETROLATUM,WHITE 28 GM JELLY TP PRN (08:00)
[2020-12-23] MEDS ORDERED: LOPERAMIDE HCL 2 MG CAPSULE PO PRN (08:00)
[2020-12-23] MEDS ORDERED: IBUPROFEN 400 MG TABLET PO PRN (08:00)
[2020-12-23] MEDS ORDERED: CloNIDine HCL 0.1 MG TABLET PO PRN (08:00)
[2020-12-23] MEDS ORDERED: ALBUTEROL SULFATE HFA 90 MCG/PUFF 8 GM INHALER IH PRN (08:00)
[2020-12-23 08:01] LABS: ALANINE AMINOTRANSFERASE 80 U/L (12-78); ALBUMIN 3.9 g/dL (3.4-5.0); ALKALINE PHOSPHATASE 61 U/L (46-116); ANION GAP 7 mmol/L (8-16); ASPARTATE AMINOTRANSFERASE 64 U/L (15-37); BILIRUBIN,TOTAL 0.5 mg/dL (0.1-1.0); CALCIUM, TOTAL 8.9 mg/dL (8.8-10.5); CARBON DIOXIDE 28 mmol/L (22-29); CHLORIDE 104 mmol/L (98-107); CHOL/HDL RATIO 4.7 (4.2-7.3); CHOLESTEROL 206 mg/dL (131-200); CREATININE 0.81 mg/dL (0.60-1.30); FREE T4 (FREE THYROXINE) 1.13 ng/dL (0.76-1.46); GLOMERULAR FILTR. RATE CALC > 60 mL/min (>60); GLUCOSE,RANDOM 92 mg/dL (70-110); HDL CHOLESTEROL 44 mg/dL (40-60); LDL CHOL (CALC.) 143 mg/dL (0-130); POTASSIUM 4.9 mmol/L (3.5-5.1); SODIUM SERUM 139 mmol/L (136-145); THYROID STIMULATING HORMONE 1.96 uIU/mL (0.36-3.74); TOTAL PROTEIN, SERUM 7.3 g/dL (6.4-8.2); TRIGLYCERIDES 93 mg/dL (15-150); UREA NITROGEN, BLOOD 20 mg/dL (7-18)
[2020-12-23] MEDS: NICOTINE 21 MG/24 HOUR PATCH TD SCH (08:03)
[2020-12-23 08:30] VITALS: BP 113/71
[2020-12-23] MEDS: RisperiDONE 2 MG TABLET PO SCH ×2 (12:15→16:37)
[2020-12-23] MEDS: BuPROPion HCL XL 150 MG ER TABLET PO SCH (12:15)
[2020-12-23] MEDS: GABAPENTIN 400 MG CAPSULE PO SCH ×3 (13:00→20:19)
[2020-12-23 16:10] VITALS: BP 132/84
[2020-12-23] MEDS: OLANZapine 10 MG TABLET PO SCH (16:37)
[2020-12-24 01:58] VITALS: BP 122/71
[2020-12-24 08:10] VITALS: BP 124/71
[2020-12-24 08:24] LABS: APPEARANCE,URINE CLEAR (CLEAR); BILIRUBIN,URINE NEGATIVE (NEGATIVE); GLUCOSE, URINE (UA) NEGATIVE (NEGATIVE); KETONES,URINE NEGATIVE (NEGATIVE); LEUKOCYTE ESTERASE ,URINE NEGATIVE (NEGATIVE); NITRATE,URINE NEGATIVE (NEGATIVE); OCCULT BLOOD,URINE NEGATIVE (NEGATIVE); PROTEIN,URINE NEGATIVE (NEGATIVE); UROBILINOGEN,URINE 0.2 mg/dL (<=1.0)
[2020-12-24 08:30] LABS: AMPHET/METH SCREEN,URINE POSITIVE (NEGATIVE); BARBITURATE SCREEN, URINE NEGATIVE (NEGATIVE); BENZODIAZEPINES SCREEN,URINE NEGATIVE (NEGATIVE); CANNABINOID SCREEN,URINE POSITIVE (NEGATIVE); COCAINE SCREEN,URINE NEGATIVE (NEGATIVE); METHADONE SCREEN, URINE NEGATIVE (NEGATIVE); OPIATE SCREEN,URINE NEGATIVE (NEGATIVE)
[2020-12-24 08:34] LABS: PHENCYCLIDINE SCREEN,URINE NEGATIVE (NEGATIVE)
[2020-12-24] MEDS: NICOTINE 21 MG/24 HOUR PATCH TD SCH (08:47)
[2020-12-24] MEDS: BuPROPion HCL XL 150 MG ER TABLET PO SCH (08:48)
[2020-12-24] MEDS: OLANZapine 10 MG TABLET PO SCH ×2 (08:48→16:47)
[2020-12-24] MEDS: RisperiDONE 2 MG TABLET PO SCH ×2 (08:48→16:47)
[2020-12-24] MEDS: GABAPENTIN 400 MG CAPSULE PO SCH ×4 (08:48→21:27)
[2020-12-24 16:22] VITALS: BP 125/81
[2020-12-24] MEDS: LORazepam 2 MG TABLET PO PRN (16:47)
[2020-12-25 03:16] VITALS: BP 121/75
[2020-12-25 08:21] VITALS: BP 105/58
[2020-12-25] MEDS: GABAPENTIN 400 MG CAPSULE PO SCH ×4 (08:22→20:28)
[2020-12-25] MEDS: RisperiDONE 2 MG TABLET PO SCH ×2 (08:22→16:57)
[2020-12-25] MEDS: OLANZapine 10 MG TABLET PO SCH ×2 (08:22→16:57)
[2020-12-25] MEDS: BuPROPion HCL XL 150 MG ER TABLET PO SCH (08:22)
[2020-12-25] MEDS: NICOTINE 21 MG/24 HOUR PATCH TD SCH (08:23)
[2020-12-25 16:28] VITALS: BP 118/81
[2020-12-25] MEDS: LORazepam 2 MG TABLET PO PRN (16:57)
[2020-12-26 04:20] VITALS: BP 152/83
[2020-12-26 08:00] VITALS: BP 140/78
[2020-12-26] MEDS: NICOTINE 21 MG/24 HOUR PATCH TD SCH (08:22)
[2020-12-26] MEDS: RisperiDONE 2 MG TABLET PO SCH ×2 (08:22→16:19)
[2020-12-26] MEDS: BuPROPion HCL XL 150 MG ER TABLET PO SCH (08:22)
[2020-12-26] MEDS: OLANZapine 10 MG TABLET PO SCH ×2 (08:22→16:19)
[2020-12-26] MEDS: GABAPENTIN 400 MG CAPSULE PO SCH ×4 (08:22→20:38)
[2020-12-26 16:17] VITALS: BP 118/78
[2020-12-27 04:26] VITALS: BP 118/78
[2020-12-27 08:03] VITALS: BP 120/76
[2020-12-27] MEDS: RisperiDONE 2 MG TABLET PO SCH ×2 (08:36→16:27)
[2020-12-27] MEDS: BuPROPion HCL XL 150 MG ER TABLET PO SCH (08:36)
[2020-12-27] MEDS: GABAPENTIN 400 MG CAPSULE PO SCH ×4 (08:36→20:36)
[2020-12-27] MEDS: NICOTINE 21 MG/24 HOUR PATCH TD SCH (08:36)
[2020-12-27] MEDS: OLANZapine 10 MG TABLET PO SCH ×2 (08:36→16:27)
[2020-12-27 16:03] VITALS: BP 120/80
[2020-12-28 06:06] VITALS: BP 116/78
[2020-12-28 08:05] VITALS: BP 129/84
[2020-12-28] MEDS: GABAPENTIN 400 MG CAPSULE PO SCH ×4 (08:33→20:52)
[2020-12-28] MEDS: NICOTINE 21 MG/24 HOUR PATCH TD SCH (08:33)
[2020-12-28] MEDS: BuPROPion HCL XL 150 MG ER TABLET PO SCH (08:33)
[2020-12-28] MEDS: OLANZapine 10 MG TABLET PO SCH ×2 (08:33→16:53)
[2020-12-28] MEDS: RisperiDONE 2 MG TABLET PO SCH ×2 (08:33→16:53)
[2020-12-28 16:10] VITALS: BP 148/80
[2020-12-29 03:54] VITALS: BP 144/83
[2020-12-29 08:07] VITALS: BP 118/70
[2020-12-29] MEDS: NICOTINE 21 MG/24 HOUR PATCH TD SCH (09:07)
[2020-12-29] MEDS: OLANZapine 10 MG TABLET PO SCH ×2 (09:07→16:07)
[2020-12-29] MEDS: RisperiDONE 2 MG TABLET PO SCH ×2 (09:07→16:07)
[2020-12-29] MEDS: GABAPENTIN 400 MG CAPSULE PO SCH ×4 (09:07→20:00)
[2020-12-29] MEDS: BuPROPion HCL XL 150 MG ER TABLET PO SCH (09:07)
[2020-12-29] MEDS: LORazepam 2 MG TABLET PO PRN (16:08)
[2020-12-29 16:15] VITALS: BP 123/77
[2020-12-30 04:23] VITALS: BP 130/90
[2020-12-30 08:17] VITALS: BP 138/88
[2020-12-30] MEDS: OLANZapine 10 MG TABLET PO SCH ×2 (08:19→16:17)
[2020-12-30] MEDS: NICOTINE 21 MG/24 HOUR PATCH TD SCH (08:19)
[2020-12-30] MEDS: LORazepam 2 MG TABLET PO PRN ×2 (08:19→20:20)
[2020-12-30] MEDS: RisperiDONE 2 MG TABLET PO SCH ×2 (08:19→16:17)
[2020-12-30] MEDS: GABAPENTIN 400 MG CAPSULE PO SCH ×4 (08:19→20:20)
[2020-12-30] MEDS: BuPROPion HCL XL 150 MG ER TABLET PO SCH (08:19)
[2020-12-30 16:17] VITALS: BP 130/85
[2020-12-31 02:47] VITALS: BP 124/80
[2020-12-31 08:08] VITALS: BP 114/64
[2020-12-31] MEDS: NICOTINE 21 MG/24 HOUR PATCH TD SCH (08:38)
[2020-12-31] MEDS: BuPROPion HCL XL 150 MG ER TABLET PO SCH (08:38)
[2020-12-31] MEDS: OLANZapine 10 MG TABLET PO SCH ×2 (08:38→16:23)
[2020-12-31] MEDS: RisperiDONE 2 MG TABLET PO SCH ×2 (08:39→16:22)
[2020-12-31] MEDS: GABAPENTIN 400 MG CAPSULE PO SCH ×4 (08:39→20:56)
[2020-12-31 16:16] VITALS: BP 117/71
[2021-01-01 01:46] VITALS: BP 122/74
[2021-01-01] MEDS: GABAPENTIN 400 MG CAPSULE PO SCH ×4 (08:04→20:22)
[2021-01-01] MEDS: OLANZapine 10 MG TABLET PO SCH ×2 (08:04→16:24)
[2021-01-01] MEDS: BuPROPion HCL XL 150 MG ER TABLET PO SCH (08:04)
[2021-01-01] MEDS: RisperiDONE 2 MG TABLET PO SCH ×2 (08:04→16:24)
[2021-01-01] MEDS: LORazepam 2 MG TABLET PO PRN (08:04)
[2021-01-01] MEDS: NICOTINE 21 MG/24 HOUR PATCH TD SCH (08:05)
[2021-01-01 08:13] VITALS: BP 128/88
[2021-01-01 16:02] VITALS: BP 114/75
[2021-01-02 00:04] VITALS: BP 124/78
[2021-01-02 08:08] VITALS: BP 143/86
[2021-01-02] MEDS: BuPROPion HCL XL 150 MG ER TABLET PO SCH (08:14)
[2021-01-02] MEDS: RisperiDONE 2 MG TABLET PO SCH ×2 (08:14→16:21)
[2021-01-02] MEDS: GABAPENTIN 400 MG CAPSULE PO SCH ×4 (08:14→20:28)
[2021-01-02] MEDS: NICOTINE 21 MG/24 HOUR PATCH TD SCH (08:14)
[2021-01-02] MEDS: OLANZapine 10 MG TABLET PO SCH ×2 (08:14→16:21)
[2021-01-02] MEDS: LORazepam 2 MG TABLET PO PRN (08:14)
[2021-01-02 09:00] VITALS: BP 128/82
[2021-01-02 10:00] VITALS: BP 128/82
[2021-01-02 16:01] VITALS: BP 130/94
[2021-01-02] MEDS ORDERED: FLUTICASONE PROPIONATE 50 MCG/SPRAY 16 GM NASAL SPRAY NASAL PRN (17:15)
[2021-01-03 02:27] VITALS: BP 124/80
[2021-01-03] MEDS: BuPROPion HCL XL 150 MG ER TABLET PO SCH (08:01)
[2021-01-03] MEDS: RisperiDONE 2 MG TABLET PO SCH ×2 (08:02→16:27)
[2021-01-03] MEDS: OLANZapine 10 MG TABLET PO SCH ×2 (08:02→16:27)
[2021-01-03] MEDS: GABAPENTIN 400 MG CAPSULE PO SCH ×4 (08:02→20:43)
[2021-01-03] MEDS: LORazepam 2 MG TABLET PO PRN ×2 (08:02→14:44)
[2021-01-03] MEDS: NICOTINE 21 MG/24 HOUR PATCH TD SCH (08:03)
[2021-01-03 08:35] VITALS: BP 147/81
[2021-01-03 16:36] VITALS: BP 114/79
[2021-01-04 01:37] VITALS: BP 154/84
[2021-01-04] MEDS: BuPROPion HCL XL 150 MG ER TABLET PO SCH (08:01)
[2021-01-04] MEDS: GABAPENTIN 400 MG CAPSULE PO SCH ×4 (08:01→20:34)
[2021-01-04] MEDS: OLANZapine 10 MG TABLET PO SCH ×2 (08:01→16:08)
[2021-01-04] MEDS: RisperiDONE 2 MG TABLET PO SCH ×2 (08:01→16:08)
[2021-01-04 08:45] VITALS: BP 138/90
[2021-01-04] MEDS: NICOTINE 21 MG/24 HOUR PATCH TD SCH (08:55)
[2021-01-04] MEDS: LORazepam 2 MG TABLET PO PRN ×2 (14:02→18:39)
[2021-01-04 16:12] VITALS: BP 134/79
[2021-01-05 05:49] VITALS: BP 125/84
[2021-01-05] MEDS: BuPROPion HCL XL 150 MG ER TABLET PO SCH (08:02)
[2021-01-05] MEDS: OLANZapine 10 MG TABLET PO SCH ×2 (08:02→16:12)
[2021-01-05] MEDS: RisperiDONE 2 MG TABLET PO SCH ×2 (08:03→16:12)
[2021-01-05] MEDS: GABAPENTIN 400 MG CAPSULE PO SCH ×4 (08:03→21:40)
[2021-01-05] MEDS: NICOTINE 21 MG/24 HOUR PATCH TD SCH (08:03)
[2021-01-05 08:06] VITALS: BP 119/75
[2021-01-05] MEDS: LORazepam 2 MG TABLET PO PRN ×2 (09:51→16:12)
[2021-01-05 16:01] VITALS: BP 139/85
[2021-01-06 05:27] VITALS: BP 135/82
[2021-01-06 08:06] VITALS: BP 142/93
[2021-01-06] MEDS: GABAPENTIN 400 MG CAPSULE PO SCH ×4 (08:30→21:09)
[2021-01-06] MEDS: RisperiDONE 2 MG TABLET PO SCH ×2 (08:30→16:51)
[2021-01-06] MEDS: OLANZapine 10 MG TABLET PO SCH ×2 (08:31→16:51)
[2021-01-06] MEDS: NICOTINE 21 MG/24 HOUR PATCH TD SCH (08:31)
[2021-01-06] MEDS: BuPROPion HCL XL 150 MG ER TABLET PO SCH (08:31)
[2021-01-06 16:05] VITALS: BP 141/87
[2021-01-06] MEDS: LORazepam 2 MG TABLET PO PRN (18:09)
[2021-01-07 06:19] VITALS: BP 146/89
[2021-01-07] MEDS: NICOTINE 21 MG/24 HOUR PATCH TD SCH (08:04)
[2021-01-07] MEDS: OLANZapine 10 MG TABLET PO SCH ×2 (08:05→16:15)
[2021-01-07] MEDS: RisperiDONE 2 MG TABLET PO SCH ×2 (08:05→16:15)
[2021-01-07] MEDS: BuPROPion HCL XL 150 MG ER TABLET PO SCH (08:05)
[2021-01-07] MEDS: GABAPENTIN 400 MG CAPSULE PO SCH ×3 (08:05→16:15)
[2021-01-07 08:06] VITALS: BP 121/68
[2021-01-07 13:20] LABS: COVID AG,FIA SOURCE NASOPHARYNGEAL
[2021-01-07 16:01] VITALS: BP 127/79
[2021-01-07] MEDS ORDERED: BUPR-93 PO (16:59)
[2021-01-07] MEDS ORDERED: RISP2TAB76 PO (17:00)
== END 2021-01-07 18:30 | disposition home or self-care (01) | DRG 750 ==
LOC: B3A 17:02
PROVIDERS: ADMIT Psychiatry & Neurology Child & Adolescent Psychiatry; ATTEND Psychiatry & Neurology Child & Adolescent Psychiatry
DX: F25.0 Schizoaffective disorder, bipolar type (principal); Z59.0 Homelessness; E66.9 Obesity, unspecified; E78.5 Hyperlipidemia, unspecified; F10.10 Alcohol abuse, uncomplicated; Z20.822 Contact with and (suspected) exposure to COVID-19
CPT/HCPCS: 80053; 80061; 80307; 81003; 84439; 84443; 85025; 87081; 87426

== ENCOUNTER 2021-01-10 17:22 | Inpatient (IN) | payer MEDICAID ==
[~2021-01-10] VITALS: Ht 175.3 cm; Wt 100.0 kg
[~2021-01-10 17:22] MED LIST changes: -BUPR-49 PO; +BUPR-93 PO; +RISP2TAB76 PO
[2021-01-10 18:39] LABS: COVID AG,FIA SOURCE NASAL SWAB
[2021-01-10] MEDS: HALOPERIDOL 5 MG TABLET PO PRN (19:52)
[2021-01-10] MEDS: LORazepam 2 MG TABLET PO PRN (19:52)
[2021-01-10] MEDS: ZOLPIDEM TARTRATE 10 MG TABLET PO PRN (20:40)
[2021-01-10 20:50] VITALS: BP 139/89
[2021-01-11 05:26] VITALS: BP 146/86
[2021-01-11 07:59] LABS: BASOPHILS % (AUTO) 0.4 % (0.0-2.0); EOSINOPHILS % (AUTO) 0.7 % (1.0-6.0); HEMOGLOBIN 15.7 g/dL (13.5-17.5); LYMPHOCYTES # (AUTO) 1.9 K/uL (1.0-4.8); LYMPHOCYTES % (AUTO) 14.3 % (22.0-44.0); MEAN CORPUSCULAR HEMOGLOBIN 29.4 pg (26.0-34.0); MEAN CORPUSCULAR HGB CONC 34.2 G/dL (31.0-37.0); MEAN CORPUSCULAR VOLUME 86 fL (80-100); MONOCYTES # (AUTO) 0.8 K/uL (0.1-1.0); MONOCYTES % (AUTO) 6.1 % (2.0-9.0); NEUTROPHILS # (AUTO) 10.2 K/uL (1.8-7.7); NEUTROPHILS % (AUTO) 78.5 % (40.0-70.0); PLATELET COUNT (AUTO) 251 K/uL (150-450); RED BLOOD CELL COUNT(AUTO) 5.34 MIL/uL (4.50-5.90); RED CELL DISTRIBUTION WIDTH 13.6 % (11.5-14.5)
[2021-01-11] MEDS: LORazepam 2 MG TABLET PO PRN ×2 (08:08→17:00)
[2021-01-11 08:10] LABS: HEMOGLOBIN A1C 5.6 % (3.8-5.6)
[2021-01-11 08:23] LABS: ALANINE AMINOTRANSFERASE 87 U/L (12-78); ALBUMIN 4.7 g/dL (3.4-5.0); ALKALINE PHOSPHATASE 68 U/L (46-116); ANION GAP 4 mmol/L (8-16); ASPARTATE AMINOTRANSFERASE 62 U/L (15-37); BILIRUBIN,TOTAL 0.6 mg/dL (0.1-1.0); CALCIUM, TOTAL 9.3 mg/dL (8.8-10.5); CARBON DIOXIDE 30 mmol/L (22-29); CHLORIDE 97 mmol/L (98-107); CHOL/HDL RATIO 4.5 (4.2-7.3); CHOLESTEROL 223 mg/dL (131-200); CREATININE 1.01 mg/dL (0.60-1.30); FREE T4 (FREE THYROXINE) 1.07 ng/dL (0.76-1.46); GLOMERULAR FILTR. RATE CALC > 60 mL/min (>60); GLUCOSE,RANDOM 89 mg/dL (70-110); HDL CHOLESTEROL 50 mg/dL (40-60); LDL CHOL (CALC.) 154 mg/dL (0-130); POTASSIUM 4.1 mmol/L (3.5-5.1); SODIUM SERUM 131 mmol/L (136-145); THYROID STIMULATING HORMONE 4.08 uIU/mL (0.36-3.74); TOTAL PROTEIN, SERUM 8.3 g/dL (6.4-8.2); TRIGLYCERIDES 94 mg/dL (15-150); UREA NITROGEN, BLOOD 20 mg/dL (7-18)
[2021-01-11 08:58] VITALS: BP 128/80
[2021-01-11] MEDS: GABAPENTIN 400 MG CAPSULE PO SCH ×3 (13:02→20:43)
[2021-01-11] MEDS ORDERED: ONDANSETRON HCL 4 MG TABLET PO PRN (14:00)
[2021-01-11] MEDS ORDERED: MAG HYDROX/AL HYDROX/SIMETH ES 30 ML SUSPENSION UDCUP PO PRN (14:00)
[2021-01-11] MEDS ORDERED: PETROLATUM,WHITE 28 GM JELLY TP PRN (14:00)
[2021-01-11] MEDS ORDERED: GuaiFENesin/D-METHORPHAN [SUGAR-FREE] 200-20MG/10 ML SYRUP UDCUP PO PRN (14:00)
[2021-01-11] MEDS ORDERED: DOCUSATE SODIUM 100 MG CAPSULE PO PRN (14:00)
[2021-01-11] MEDS ORDERED: ALBUTEROL SULFATE HFA 90 MCG/PUFF 8 GM INHALER IH PRN (14:00)
[2021-01-11] MEDS ORDERED: LOPERAMIDE HCL 2 MG CAPSULE PO PRN (14:00)
[2021-01-11] MEDS ORDERED: ACETAMINOPHEN 325 MG TABLET PO PRN (14:00)
[2021-01-11] MEDS ORDERED: CloNIDine HCL 0.1 MG TABLET PO PRN (14:00)
[2021-01-11] MEDS ORDERED: MAGNESIUM HYDROXIDE SUSPENSION 30 ML UDCUP PO PRN (14:00)
[2021-01-11] MEDS ORDERED: IBUPROFEN 400 MG TABLET PO PRN (14:00)
[2021-01-11 16:13] VITALS: BP 135/83
[2021-01-11] MEDS: RisperiDONE 2 MG TABLET PO SCH (17:00)
[2021-01-11] MEDS: OLANZapine 10 MG TABLET PO SCH (17:00)
[2021-01-12 06:09] VITALS: BP 130/83
[2021-01-12] MEDS: LORazepam 2 MG TABLET PO PRN (08:31)
[2021-01-12] MEDS: PARoxetine HCL 20 MG TABLET PO SCH (08:31)
[2021-01-12] MEDS: RisperiDONE 2 MG TABLET PO SCH ×2 (08:31→17:23)
[2021-01-12] MEDS: OLANZapine 10 MG TABLET PO SCH ×2 (08:31→17:24)
[2021-01-12] MEDS: GABAPENTIN 400 MG CAPSULE PO SCH ×4 (08:31→20:53)
[2021-01-12] MEDS: BuPROPion HCL XL 150 MG ER TABLET PO SCH (08:31)
[2021-01-12 08:52] VITALS: BP 120/69
[2021-01-12] MEDS: NICOTINE 14 MG/24 HOUR PATCH TD PRN (13:03)
[2021-01-12 16:19] VITALS: BP 130/72
[2021-01-13 05:04] VITALS: BP 124/89
[2021-01-13] MEDS: RisperiDONE 2 MG TABLET PO SCH ×2 (08:46→16:44)
[2021-01-13] MEDS: OLANZapine 10 MG TABLET PO SCH ×2 (08:46→16:43)
[2021-01-13] MEDS: GABAPENTIN 400 MG CAPSULE PO SCH ×4 (08:46→20:55)
[2021-01-13] MEDS: BuPROPion HCL XL 150 MG ER TABLET PO SCH (08:46)
[2021-01-13] MEDS: PARoxetine HCL 20 MG TABLET PO SCH (08:46)
[2021-01-13] MEDS: LORazepam 2 MG TABLET PO PRN (08:46)
[2021-01-13 08:58] VITALS: BP 117/78
[2021-01-13] MEDS: NICOTINE 14 MG/24 HOUR PATCH TD PRN (09:54)
[2021-01-13 16:08] VITALS: BP 148/80
[2021-01-14 05:28] VITALS: BP 126/72
[2021-01-14 08:35] VITALS: BP 145/88
[2021-01-14] MEDS: BuPROPion HCL XL 150 MG ER TABLET PO SCH (08:42)
[2021-01-14] MEDS: RisperiDONE 2 MG TABLET PO SCH ×2 (08:42→16:42)
[2021-01-14] MEDS: OLANZapine 10 MG TABLET PO SCH ×2 (08:42→16:42)
[2021-01-14] MEDS: GABAPENTIN 400 MG CAPSULE PO SCH ×4 (08:42→21:01)
[2021-01-14] MEDS: PARoxetine HCL 20 MG TABLET PO SCH (08:42)
[2021-01-14] MEDS: LORazepam 2 MG TABLET PO PRN ×2 (08:42→16:42)
[2021-01-14] MEDS: NICOTINE 14 MG/24 HOUR PATCH TD PRN (09:17)
[2021-01-14 16:14] VITALS: BP 117/82
[2021-01-15 05:52] VITALS: BP 135/95
[2021-01-15 08:07] LABS: ANION GAP 6 mmol/L (8-16); CALCIUM, TOTAL 9.2 mg/dL (8.8-10.5); CARBON DIOXIDE 30 mmol/L (22-29); CHLORIDE 102 mmol/L (98-107); CREATININE 1.03 mg/dL (0.60-1.30); GLOMERULAR FILTR. RATE CALC > 60 mL/min (>60); GLUCOSE,RANDOM 81 mg/dL (70-110); POTASSIUM 4.5 mmol/L (3.5-5.1); SODIUM SERUM 138 mmol/L (136-145); UREA NITROGEN, BLOOD 20 mg/dL (7-18)
[2021-01-15 08:41] VITALS: BP 114/73
[2021-01-15] MEDS: BuPROPion HCL XL 150 MG ER TABLET PO SCH (09:30)
[2021-01-15] MEDS: GABAPENTIN 400 MG CAPSULE PO SCH ×4 (09:30→20:37)
[2021-01-15] MEDS: PARoxetine HCL 20 MG TABLET PO SCH (09:30)
[2021-01-15] MEDS: OLANZapine 10 MG TABLET PO SCH ×2 (09:30→16:59)
[2021-01-15] MEDS: RisperiDONE 2 MG TABLET PO SCH ×2 (09:30→16:59)
[2021-01-15 16:28] VITALS: BP 119/71
[2021-01-16 00:22] VITALS: BP 115/67
[2021-01-16] MEDS: RisperiDONE 2 MG TABLET PO SCH ×2 (08:07→16:53)
[2021-01-16] MEDS: BuPROPion HCL XL 150 MG ER TABLET PO SCH (08:07)
[2021-01-16] MEDS: PARoxetine HCL 20 MG TABLET PO SCH (08:07)
[2021-01-16] MEDS: GABAPENTIN 400 MG CAPSULE PO SCH ×4 (08:07→20:55)
[2021-01-16] MEDS: LORazepam 2 MG TABLET PO PRN ×2 (08:07→18:31)
[2021-01-16] MEDS: OLANZapine 10 MG TABLET PO SCH ×2 (08:07→16:53)
[2021-01-16 08:34] VITALS: BP 134/86
[2021-01-16] MEDS: NICOTINE 14 MG/24 HOUR PATCH TD PRN (09:51)
[2021-01-16 16:15] VITALS: BP 135/83
[2021-01-16] MEDS: ZOLPIDEM TARTRATE 10 MG TABLET PO PRN (20:55)
[2021-01-17 03:51] VITALS: BP 129/79
[2021-01-17] MEDS: GABAPENTIN 400 MG CAPSULE PO SCH ×4 (08:05→20:30)
[2021-01-17] MEDS: LORazepam 2 MG TABLET PO PRN ×2 (08:05→16:24)
[2021-01-17] MEDS: OLANZapine 10 MG TABLET PO SCH ×2 (08:05→16:24)
[2021-01-17] MEDS: PARoxetine HCL 20 MG TABLET PO SCH (08:05)
[2021-01-17] MEDS: BuPROPion HCL XL 150 MG ER TABLET PO SCH (08:05)
[2021-01-17] MEDS: RisperiDONE 2 MG TABLET PO SCH ×2 (08:05→16:24)
[2021-01-17 09:20] VITALS: BP 130/90
[2021-01-17 16:26] VITALS: BP 114/77
[2021-01-18 03:49] VITALS: BP 130/85
[2021-01-18] MEDS: HALOPERIDOL 5 MG TABLET PO PRN ×2 (04:00→10:12)
[2021-01-18] MEDS: LORazepam 2 MG TABLET PO PRN ×3 (04:01→16:24)
[2021-01-18 08:39] VITALS: BP 130/78
[2021-01-18] MEDS: OLANZapine 10 MG TABLET PO SCH ×2 (09:15→16:24)
[2021-01-18] MEDS: MULTIVITAMINS, THERAPEUTIC TABLET PO SCH (09:15)
[2021-01-18] MEDS: RisperiDONE 2 MG TABLET PO SCH ×2 (09:15→16:24)
[2021-01-18] MEDS: GABAPENTIN 400 MG CAPSULE PO SCH ×4 (09:16→20:37)
[2021-01-18] MEDS: PARoxetine HCL 20 MG TABLET PO SCH (09:16)
[2021-01-18] MEDS: BuPROPion HCL XL 150 MG ER TABLET PO SCH (09:16)
[2021-01-18 16:16] VITALS: BP 126/76
[2021-01-19 05:24] VITALS: BP 125/74
[2021-01-19] MEDS: BuPROPion HCL XL 150 MG ER TABLET PO SCH (08:21)
[2021-01-19] MEDS: LORazepam 2 MG TABLET PO PRN ×2 (08:21→16:49)
[2021-01-19] MEDS: MULTIVITAMINS, THERAPEUTIC TABLET PO SCH (08:21)
[2021-01-19] MEDS: OLANZapine 10 MG TABLET PO SCH ×2 (08:21→16:48)
[2021-01-19] MEDS: RisperiDONE 2 MG TABLET PO SCH ×2 (08:21→16:49)
[2021-01-19] MEDS: PARoxetine HCL 20 MG TABLET PO SCH (08:21)
[2021-01-19] MEDS: GABAPENTIN 400 MG CAPSULE PO SCH ×4 (08:21→20:43)
[2021-01-19 08:46] VITALS: BP 143/99
[2021-01-19] MEDS: HALOPERIDOL 5 MG TABLET PO PRN (10:13)
[2021-01-19] MEDS: NICOTINE 14 MG/24 HOUR PATCH TD PRN (10:14)
[2021-01-19 16:25] VITALS: BP 136/81
[2021-01-20 00:51] VITALS: BP 125/92
[2021-01-20 08:45] VITALS: BP 121/84
[2021-01-20] MEDS: BuPROPion HCL XL 150 MG ER TABLET PO SCH (09:02)
[2021-01-20] MEDS: MULTIVITAMINS, THERAPEUTIC TABLET PO SCH (09:02)
[2021-01-20] MEDS: OLANZapine 10 MG TABLET PO SCH ×2 (09:02→16:58)
[2021-01-20] MEDS: RisperiDONE 2 MG TABLET PO SCH ×2 (09:02→16:58)
[2021-01-20] MEDS: GABAPENTIN 400 MG CAPSULE PO SCH ×4 (09:02→20:32)
[2021-01-20] MEDS: PARoxetine HCL 20 MG TABLET PO SCH (09:02)
[2021-01-20] MEDS: NICOTINE 14 MG/24 HOUR PATCH TD PRN (10:21)
[2021-01-20] MEDS: LORazepam 2 MG TABLET PO PRN (13:29)
[2021-01-20 16:10] VITALS: BP 119/86
[2021-01-21 06:18] VITALS: BP 117/70
[2021-01-21] MEDS: GABAPENTIN 400 MG CAPSULE PO SCH ×4 (08:27→20:36)
[2021-01-21] MEDS: MULTIVITAMINS, THERAPEUTIC TABLET PO SCH (08:27)
[2021-01-21] MEDS: RisperiDONE 2 MG TABLET PO SCH ×2 (08:27→16:35)
[2021-01-21] MEDS: BuPROPion HCL XL 150 MG ER TABLET PO SCH (08:27)
[2021-01-21] MEDS: OLANZapine 10 MG TABLET PO SCH ×2 (08:27→16:35)
[2021-01-21] MEDS: PARoxetine HCL 20 MG TABLET PO SCH (08:27)
[2021-01-21 08:54] VITALS: BP 133/78
[2021-01-21] MEDS: LORazepam 2 MG TABLET PO PRN (12:25)
[2021-01-21 16:24] VITALS: BP 137/85
[2021-01-22 06:00] VITALS: BP 148/99
[2021-01-22 08:00] VITALS: BP 132/77
[2021-01-22] MEDS: PARoxetine HCL 20 MG TABLET PO SCH (08:20)
[2021-01-22] MEDS: GABAPENTIN 400 MG CAPSULE PO SCH ×4 (08:20→20:22)
[2021-01-22] MEDS: OLANZapine 10 MG TABLET PO SCH ×2 (08:20→16:37)
[2021-01-22] MEDS: RisperiDONE 2 MG TABLET PO SCH ×2 (08:20→16:37)
[2021-01-22] MEDS: BuPROPion HCL XL 150 MG ER TABLET PO SCH (08:20)
[2021-01-22] MEDS: LORazepam 2 MG TABLET PO PRN ×2 (08:20→16:37)
[2021-01-22] MEDS: MULTIVITAMINS, THERAPEUTIC TABLET PO SCH (08:20)
[2021-01-22] MEDS: NICOTINE 14 MG/24 HOUR PATCH TD PRN (09:30)
[2021-01-22 16:12] VITALS: BP 121/73
[2021-01-22] MEDS: ZOLPIDEM TARTRATE 10 MG TABLET PO PRN (21:39)
[2021-01-23 05:36] VITALS: BP 118/74
[2021-01-23] MEDS: PARoxetine HCL 20 MG TABLET PO SCH (08:43)
[2021-01-23] MEDS: LORazepam 2 MG TABLET PO PRN ×3 (08:43→16:53)
[2021-01-23] MEDS: RisperiDONE 2 MG TABLET PO SCH ×2 (08:43→16:16)
[2021-01-23] MEDS: MULTIVITAMINS, THERAPEUTIC TABLET PO SCH (08:43)
[2021-01-23] MEDS: BuPROPion HCL XL 150 MG ER TABLET PO SCH (08:43)
[2021-01-23] MEDS: OLANZapine 10 MG TABLET PO SCH ×2 (08:43→16:16)
[2021-01-23] MEDS: NICOTINE 14 MG/24 HOUR PATCH TD PRN (08:43)
[2021-01-23] MEDS: GABAPENTIN 400 MG CAPSULE PO SCH ×4 (08:43→20:38)
[2021-01-23 09:06] VITALS: BP 132/89
[2021-01-23 16:34] VITALS: BP 124/78
[2021-01-24 06:04] VITALS: BP 143/86
[2021-01-24] MEDS: OLANZapine 10 MG TABLET PO SCH ×2 (08:31→16:20)
[2021-01-24] MEDS: NICOTINE 14 MG/24 HOUR PATCH TD PRN (08:31)
[2021-01-24] MEDS: MULTIVITAMINS, THERAPEUTIC TABLET PO SCH (08:31)
[2021-01-24] MEDS: GABAPENTIN 400 MG CAPSULE PO SCH ×4 (08:31→20:27)
[2021-01-24] MEDS: BuPROPion HCL XL 150 MG ER TABLET PO SCH (08:31)
[2021-01-24] MEDS: RisperiDONE 2 MG TABLET PO SCH ×2 (08:31→16:20)
[2021-01-24] MEDS: PARoxetine HCL 20 MG TABLET PO SCH (08:31)
[2021-01-24] MEDS: LORazepam 2 MG TABLET PO PRN ×4 (08:31→20:34)
[2021-01-24 08:42] VITALS: BP 166/89
[2021-01-24] MEDS: HALOPERIDOL 5 MG TABLET PO PRN (09:36)
[2021-01-24 16:15] VITALS: BP 138/90
[2021-01-24] MEDS: ZOLPIDEM TARTRATE 10 MG TABLET PO PRN (20:27)
[2021-01-25 00:19] VITALS: BP 141/87
[2021-01-25 08:30] VITALS: BP 134/80
[2021-01-25] MEDS: MULTIVITAMINS, THERAPEUTIC TABLET PO SCH (08:45)
[2021-01-25] MEDS: BuPROPion HCL XL 150 MG ER TABLET PO SCH (08:45)
[2021-01-25] MEDS: PARoxetine HCL 20 MG TABLET PO SCH (08:46)
[2021-01-25] MEDS: RisperiDONE 2 MG TABLET PO SCH ×2 (08:46→16:38)
[2021-01-25] MEDS: OLANZapine 10 MG TABLET PO SCH ×2 (08:46→16:38)
[2021-01-25] MEDS: GABAPENTIN 400 MG CAPSULE PO SCH ×4 (08:46→20:42)
[2021-01-25] MEDS: HALOPERIDOL 5 MG TABLET PO PRN (08:51)
[2021-01-25] MEDS: LORazepam 2 MG TABLET PO PRN ×2 (08:52→16:38)
[2021-01-25 16:41] VITALS: BP 110/69
[2021-01-26 06:24] VITALS: BP 140/93
[2021-01-26] MEDS: MULTIVITAMINS, THERAPEUTIC TABLET PO SCH (08:30)
[2021-01-26] MEDS: BuPROPion HCL XL 150 MG ER TABLET PO SCH (08:30)
[2021-01-26] MEDS: GABAPENTIN 400 MG CAPSULE PO SCH ×4 (08:31→20:39)
[2021-01-26] MEDS: RisperiDONE 2 MG TABLET PO SCH ×2 (08:31→17:12)
[2021-01-26] MEDS: OLANZapine 10 MG TABLET PO SCH ×2 (08:31→17:12)
[2021-01-26] MEDS: PARoxetine HCL 20 MG TABLET PO SCH (08:31)
[2021-01-26 09:01] VITALS: BP 132/95
[2021-01-26 16:21] VITALS: BP 147/78
[2021-01-26] MEDS: LORazepam 2 MG TABLET PO PRN (17:15)
[2021-01-27 05:36] VITALS: BP 124/86
[2021-01-27] MEDS: RisperiDONE 2 MG TABLET PO SCH ×2 (08:35→16:31)
[2021-01-27] MEDS: GABAPENTIN 400 MG CAPSULE PO SCH ×4 (08:35→20:35)
[2021-01-27] MEDS: PARoxetine HCL 20 MG TABLET PO SCH (08:35)
[2021-01-27] MEDS: MULTIVITAMINS, THERAPEUTIC TABLET PO SCH (08:35)
[2021-01-27] MEDS: BuPROPion HCL XL 150 MG ER TABLET PO SCH (08:35)
[2021-01-27] MEDS: LORazepam 2 MG TABLET PO PRN ×2 (08:36→16:32)
[2021-01-27] MEDS: NICOTINE 14 MG/24 HOUR PATCH TD PRN (08:36)
[2021-01-27] MEDS: OLANZapine 10 MG TABLET PO SCH ×2 (08:36→16:31)
[2021-01-27 08:49] VITALS: BP 122/84
[2021-01-27 16:28] VITALS: BP 137/89
[2021-01-28 03:50] VITALS: BP 109/68
[2021-01-28] MEDS: NICOTINE 14 MG/24 HOUR PATCH TD PRN (08:15)
[2021-01-28] MEDS: LORazepam 2 MG TABLET PO PRN ×3 (08:15→20:46)
[2021-01-28] MEDS: BuPROPion HCL XL 150 MG ER TABLET PO SCH (08:26)
[2021-01-28] MEDS: GABAPENTIN 400 MG CAPSULE PO SCH ×4 (08:26→20:46)
[2021-01-28] MEDS: RisperiDONE 2 MG TABLET PO SCH ×2 (08:26→16:56)
[2021-01-28] MEDS: OLANZapine 10 MG TABLET PO SCH ×2 (08:26→16:56)
[2021-01-28] MEDS: MULTIVITAMINS, THERAPEUTIC TABLET PO SCH (08:26)
[2021-01-28] MEDS: PARoxetine HCL 20 MG TABLET PO SCH (08:26)
[2021-01-28 09:25] VITALS: BP 129/88
[2021-01-28 16:33] VITALS: BP 131/89
[2021-01-29 03:58] VITALS: BP 123/78
[2021-01-29] MEDS: LORazepam 2 MG TABLET PO PRN ×3 (08:00→16:07)
[2021-01-29] MEDS: NICOTINE 14 MG/24 HOUR PATCH TD PRN (08:00)
[2021-01-29] MEDS: PARoxetine HCL 20 MG TABLET PO SCH (08:38)
[2021-01-29] MEDS: OLANZapine 10 MG TABLET PO SCH ×2 (08:38→16:07)
[2021-01-29] MEDS: MULTIVITAMINS, THERAPEUTIC TABLET PO SCH (08:38)
[2021-01-29] MEDS: BuPROPion HCL XL 150 MG ER TABLET PO SCH (08:38)
[2021-01-29] MEDS: GABAPENTIN 400 MG CAPSULE PO SCH ×4 (08:38→20:41)
[2021-01-29] MEDS: RisperiDONE 2 MG TABLET PO SCH ×2 (08:38→16:07)
[2021-01-29 08:49] VITALS: BP 121/79
[2021-01-29 16:14] VITALS: BP 117/84
[2021-01-30] MEDS: OLANZapine 10 MG TABLET PO SCH ×2 (08:03→16:13)
[2021-01-30] MEDS: PARoxetine HCL 20 MG TABLET PO SCH (08:03)
[2021-01-30] MEDS: BuPROPion HCL XL 150 MG ER TABLET PO SCH (08:03)
[2021-01-30] MEDS: RisperiDONE 2 MG TABLET PO SCH ×2 (08:03→16:13)
[2021-01-30] MEDS: GABAPENTIN 400 MG CAPSULE PO SCH ×4 (08:03→19:49)
[2021-01-30] MEDS: MULTIVITAMINS, THERAPEUTIC TABLET PO SCH (08:03)
[2021-01-30] MEDS: LORazepam 2 MG TABLET PO PRN (08:04)
[2021-01-30 08:50] VITALS: BP 144/80
[2021-01-30 16:26] VITALS: BP 137/82
[2021-01-31 04:26] VITALS: BP 137/82
[2021-01-31] MEDS: NICOTINE 14 MG/24 HOUR PATCH TD PRN (08:00)
[2021-01-31] MEDS: LORazepam 2 MG TABLET PO PRN ×2 (08:00→12:20)
[2021-01-31] MEDS: OLANZapine 10 MG TABLET PO SCH (08:23)
[2021-01-31] MEDS: BuPROPion HCL XL 150 MG ER TABLET PO SCH (08:23)
[2021-01-31] MEDS: RisperiDONE 2 MG TABLET PO SCH (08:23)
[2021-01-31] MEDS: GABAPENTIN 400 MG CAPSULE PO SCH ×2 (08:23→12:20)
[2021-01-31] MEDS: PARoxetine HCL 20 MG TABLET PO SCH (08:23)
[2021-01-31] MEDS: MULTIVITAMINS, THERAPEUTIC TABLET PO SCH (08:23)
[2021-01-31 08:26] VITALS: BP 136/96
[2021-01-31] MEDS: HALOPERIDOL 5 MG TABLET PO PRN (14:00)
[2021-01-31] MEDS ORDERED: PARO-38 PO (14:05)
== END 2021-01-31 14:30 | disposition home or self-care (01) | DRG 750 ==
LOC: B3A 19:22
PROVIDERS: ADMIT Psychiatry & Neurology Child & Adolescent Psychiatry; ATTEND Psychiatry & Neurology Child & Adolescent Psychiatry
DX: F25.1 Schizoaffective disorder, depressive type (principal); I95.9 Hypotension, unspecified; E87.1 Hypo-osmolality and hyponatremia; Z59.0 Homelessness; E78.5 Hyperlipidemia, unspecified; F10.10 Alcohol abuse, uncomplicated; F41.9 Anxiety disorder, unspecified; F19.10 Other psychoactive substance abuse, uncomplicated; E02 Subclinical iodine-deficiency hypothyroidism; D72.829 Elevated white blood cell count, unspecified; Z20.822 Contact with and (suspected) exposure to COVID-19; Z79.899 Other long term (current) drug therapy
CPT/HCPCS: 80048; 80053; 80061; 83036; 84439; 84443; 85025; 87081

== ENCOUNTER 2022-05-22 16:08 | Inpatient (IN) | payer MEDICAID, OTHER ==
[~2022-05-22] VITALS: Ht 180.3 cm; Wt 74.4 kg
[~2022-05-22 16:08] MED LIST changes: +BUPR-50 PO; -BUPR-93 PO; +PARO-38 PO
[2022-05-22] MEDS ORDERED: HALOPERIDOL LACTATE 5 MG/ML VIAL IM ONE (16:45)
[2022-05-22] MEDS ORDERED: LORazepam 2 MG/ML VIAL IM ONE (16:45)
[2022-05-22] MEDS ORDERED: DiphenhydrAMINE HCL 50 MG/ML VIAL IM ONE (16:45)
[2022-05-22 17:06] LABS: BASOPHILS % (AUTO) 0.6 % (0.0-2.0); EOSINOPHILS % (AUTO) 0.3 % (1.0-6.0); HEMATOCRIT 44.4 % (41-53); HEMOGLOBIN 14.9 g/dL (13.5-17.5); LYMPHOCYTES # (AUTO) 1.9 K/uL (1.0-4.8); LYMPHOCYTES % (AUTO) 12.8 % (22.0-44.0); MEAN CORPUSCULAR HEMOGLOBIN 29.4 pg (26.0-34.0); MEAN CORPUSCULAR HGB CONC 33.5 G/dL (31.0-37.0); MEAN CORPUSCULAR VOLUME 88 fL (80-100); MONOCYTES # (AUTO) 1.2 K/uL (0.1-1.0); MONOCYTES % (AUTO) 8.3 % (2.0-9.0); NEUTROPHILS # (AUTO) 11.4 K/uL (1.8-7.7); PLATELET COUNT (AUTO) 247 K/uL (150-450); RED BLOOD CELL COUNT(AUTO) 5.06 MIL/uL (4.50-5.90); RED CELL DISTRIBUTION WIDTH 13.6 % (11.5-14.5)
[2022-05-22 17:16] LABS: AMPHET/METH SCREEN,URINE POSITIVE (NEGATIVE); BARBITURATE SCREEN, URINE NEGATIVE (NEGATIVE); BENZODIAZEPINES SCREEN,URINE NEGATIVE (NEGATIVE); CANNABINOID SCREEN,URINE POSITIVE (NEGATIVE); COCAINE SCREEN,URINE NEGATIVE (NEGATIVE); METHADONE SCREEN, URINE NEGATIVE (NEGATIVE); OPIATE SCREEN,URINE NEGATIVE (NEGATIVE); PHENCYCLIDINE SCREEN,URINE NEGATIVE (NEGATIVE)
[2022-05-22 17:19] LABS: ANION GAP 8 mmol/L (8-16); CALCIUM, TOTAL 9.4 mg/dL (8.8-10.5); CARBON DIOXIDE 28 mmol/L (22-29); CHLORIDE 102 mmol/L (98-107); CREATININE 0.86 mg/dL (0.60-1.30); GLOMERULAR FILTR. RATE CALC > 60 mL/min (>60); GLUCOSE,RANDOM 95 mg/dL (70-110); SODIUM SERUM 138 mmol/L (136-145); UREA NITROGEN, BLOOD 29 mg/dL (7-18)
[2022-05-22 17:25] LABS: ALANINE AMINOTRANSFERASE 65 U/L (12-78); ALBUMIN 4.1 g/dL (3.4-5.0); ALKALINE PHOSPHATASE 58 U/L (46-116); ASPARTATE AMINOTRANSFERASE 47 U/L (15-37); BILIRUBIN,TOTAL 0.5 mg/dL (0.1-1.0); TOTAL PROTEIN, SERUM 7.5 g/dL (6.4-8.2)
[2022-05-22 18:21] LABS: COVID AG,FIA SOURCE NASAL SWAB
[2022-05-22] MEDS ORDERED: ZOLPIDEM TARTRATE 10 MG TABLET PO PRN (19:30)
[2022-05-22 19:46] LABS: APPEARANCE,URINE CLEAR (CLEAR); BILIRUBIN,URINE NEGATIVE (NEGATIVE); GLUCOSE, URINE (UA) NEGATIVE (NEGATIVE); KETONES,URINE NEGATIVE (NEGATIVE); LEUKOCYTE ESTERASE ,URINE NEGATIVE (NEGATIVE); NITRATE,URINE NEGATIVE (NEGATIVE); OCCULT BLOOD,URINE NEGATIVE (NEGATIVE); PH,URINE 6.5 (5.0-8.0); PROTEIN,URINE TRACE mg/dL (NEGATIVE); SPECIFIC GRAVITIY, URINE 1.034 (1.003-1.030); UROBILINOGEN,URINE <=1.0 mg/dL (<=1.0)
[2022-05-22 23:30] VITALS: BP 122/75
[2022-05-23 08:15] VITALS: BP 115/80
[2022-05-23] MEDS: HALOPERIDOL 5 MG TABLET PO PRN (09:21)
[2022-05-23] MEDS: LORazepam 2 MG TABLET PO PRN (09:21)
[2022-05-23] MEDS ORDERED: CloNIDine HCL 0.1 MG TABLET PO PRN (09:30)
[2022-05-23] MEDS ORDERED: ONDANSETRON HCL 4 MG TABLET PO PRN (09:30)
[2022-05-23] MEDS ORDERED: ALBUTEROL SULFATE HFA 90 MCG/PUFF 8 GM INHALER IH PRN (09:30)
[2022-05-23] MEDS ORDERED: ACETAMINOPHEN 325 MG TABLET PO PRN (09:30)
[2022-05-23] MEDS ORDERED: DOCUSATE SODIUM 100 MG CAPSULE PO PRN (09:30)
[2022-05-23] MEDS ORDERED: MAGNESIUM HYDROXIDE SUSPENSION 30 ML UDCUP PO PRN (09:30)
[2022-05-23] MEDS ORDERED: IBUPROFEN 600 MG TABLET PO PRN (09:30)
[2022-05-23] MEDS ORDERED: OMEPRAZOLE 20 MG CAPSULE PO PRN (09:30)
[2022-05-23] MEDS ORDERED: LOPERAMIDE HCL 2 MG CAPSULE PO PRN (09:30)
[2022-05-23] MEDS ORDERED: MAG HYDROX/AL HYDROX/SIMETH ES 30 ML SUSPENSION UDCUP PO PRN (09:30)
[2022-05-23] MEDS ORDERED: PETROLATUM,WHITE 28 GM JELLY TP PRN (09:30)
[2022-05-23] MEDS ORDERED: BENZOCAINE/MENTHOL LOZENGE PO PRN (09:30)
[2022-05-23] MEDS ORDERED: BACITRACIN 28 GM OINTMENT TP PRN (09:30)
[2022-05-23 20:15] VITALS: BP 122/72
[2022-05-24] MEDS: HALOPERIDOL 5 MG TABLET PO PRN (07:11)
[2022-05-24] MEDS: LORazepam 2 MG TABLET PO PRN (07:11)
[2022-05-24 08:09] VITALS: BP 116/59
[2022-05-24 20:10] VITALS: BP 108/68
[2022-05-24] MEDS: OLANZapine 5 MG TABLET PO SCH (20:21)
[2022-05-25 08:07] VITALS: BP 118/69
[2022-05-25] MEDS: HALOPERIDOL 5 MG TABLET PO PRN (08:21)
[2022-05-25] MEDS: LORazepam 2 MG TABLET PO PRN (08:21)
[2022-05-25] MEDS: OLANZapine 5 MG TABLET PO SCH (20:10)
[2022-05-25 22:09] VITALS: BP 112/72
[2022-05-26] MEDS: HALOPERIDOL 5 MG TABLET PO PRN (08:19)
[2022-05-26] MEDS: LORazepam 2 MG TABLET PO PRN (08:19)
[2022-05-26 09:01] VITALS: BP 124/70
[2022-05-26] MEDS: OLANZapine 5 MG TABLET PO SCH (20:08)
[2022-05-26 21:06] VITALS: BP 121/67
[2022-05-27 07:50] LABS: BAND NEUTROPHILS % (MANUAL) 0 % (0-5)
[2022-05-27 07:59] LABS: HEMATOCRIT 47.3 % (41-53); HEMOGLOBIN 15.7 g/dL (13.5-17.5); MEAN CORPUSCULAR HEMOGLOBIN 29.8 pg (26.0-34.0); MEAN CORPUSCULAR HGB CONC 33.2 G/dL (31.0-37.0); MEAN CORPUSCULAR VOLUME 90 fL (80-100); PLATELET COUNT (AUTO) 254 K/uL (150-450); RED BLOOD CELL COUNT(AUTO) 5.27 MIL/uL (4.50-5.90); RED CELL DISTRIBUTION WIDTH 13.7 % (11.5-14.5)
[2022-05-27 08:21] LABS: ANION GAP 5 mmol/L (8-16); CALCIUM, TOTAL 9.3 mg/dL (8.8-10.5); CARBON DIOXIDE 31 mmol/L (22-29); CHLORIDE 104 mmol/L (98-107); CREATININE 0.75 mg/dL (0.60-1.30); GLOMERULAR FILTR. RATE CALC > 60 mL/min (>60); GLUCOSE,RANDOM 62 mg/dL (70-110); POTASSIUM 4.7 mmol/L (3.5-5.1); SODIUM SERUM 140 mmol/L (136-145); UREA NITROGEN, BLOOD 16 mg/dL (7-18)
[2022-05-27 08:30] VITALS: BP 112/73
[2022-05-27] MEDS: LORazepam 2 MG TABLET PO PRN ×2 (08:34→17:16)
[2022-05-27] MEDS: HALOPERIDOL 5 MG TABLET PO PRN ×2 (08:34→17:16)
[2022-05-27 09:02] LABS: EOSINOPHILS % (MANUAL) 1 % (1-6); LYMPHOCYTES % (MANUAL) 28 % (22-44); MONOCYTES % (MANUAL) 8 % (2-9); SEGMENTED NEUTROPHILS % 63 % (40-70)
[2022-05-27 20:19] VITALS: BP 116/69
[2022-05-27] MEDS: OLANZapine 5 MG TABLET PO SCH (20:19)
[2022-05-28 08:19] VITALS: BP 116/68
[2022-05-28] MEDS: LORazepam 2 MG TABLET PO PRN (14:21)
[2022-05-28] MEDS: HALOPERIDOL 5 MG TABLET PO PRN (14:21)
[2022-05-28] MEDS: OLANZapine 5 MG TABLET PO SCH (20:12)
[2022-05-28 20:32] VITALS: BP 105/62
[2022-05-29 08:44] VITALS: BP 115/66
[2022-05-29] MEDS: HALOPERIDOL 5 MG TABLET PO PRN (11:11)
[2022-05-29] MEDS: LORazepam 2 MG TABLET PO PRN ×2 (11:11→17:06)
[2022-05-29 20:18] VITALS: BP 112/62
[2022-05-29] MEDS: OLANZapine 5 MG TABLET PO SCH (20:18)
[2022-05-30 09:35] VITALS: BP 118/64
[2022-05-30] MEDS: LORazepam 2 MG TABLET PO PRN (16:22)
[2022-05-30 16:26] LABS: GLUCOMETER DEV NAME(LOC) POC.BV
[2022-05-30 20:17] VITALS: BP 118/68
[2022-05-30] MEDS: OLANZapine 5 MG TABLET PO SCH (20:31)
[2022-05-31 08:33] VITALS: BP 117/64
[2022-05-31] MEDS: HALOPERIDOL 5 MG TABLET PO PRN (09:50)
[2022-05-31] MEDS: LORazepam 2 MG TABLET PO PRN (09:50)
[2022-05-31 21:54] VITALS: BP 120/76
[2022-05-31] MEDS: OLANZapine 5 MG TABLET PO SCH (22:12)
[2022-06-01 08:00] VITALS: BP 128/72
[2022-06-01] MEDS: LORazepam 2 MG TABLET PO PRN ×2 (08:41→17:14)
[2022-06-01] MEDS: HALOPERIDOL 5 MG TABLET PO PRN (08:41)
[2022-06-01] MEDS: OLANZapine 5 MG TABLET PO SCH (20:07)
[2022-06-01 20:14] VITALS: BP 115/70
[2022-06-02 08:19] VITALS: BP 133/73
[2022-06-02] MEDS: LORazepam 2 MG TABLET PO PRN (16:17)
[2022-06-02 20:00] VITALS: BP 132/78
[2022-06-02] MEDS: OLANZapine 5 MG TABLET PO SCH (20:20)
[2022-06-03 08:44] VITALS: BP 118/63
[2022-06-03] MEDS: LORazepam 2 MG TABLET PO PRN (09:21)
[2022-06-03] MEDS: HALOPERIDOL 5 MG TABLET PO PRN (09:21)
[2022-06-03] MEDS ORDERED: OLAN5TAB52 PO (15:39)
== END 2022-06-03 16:31 | disposition home or self-care (01) | DRG 750 ==
LOC: EMS 16:25 → B3A 19:39
PROVIDERS: ADMIT Psychiatry & Neurology Psychiatry; ATTEND Psychiatry & Neurology Psychiatry
DX: F20.9 Schizophrenia, unspecified (principal); R45.851 Suicidal ideations; F10.20 Alcohol dependence, uncomplicated; F15.10 Other stimulant abuse, uncomplicated; Z20.822 Contact with and (suspected) exposure to COVID-19; F41.9 Anxiety disorder, unspecified; F17.210 Nicotine dependence, cigarettes, uncomplicated; G47.00 Insomnia, unspecified; Z79.899 Other long term (current) drug therapy
CPT/HCPCS: 80048; 80053; 81003; 83735; 84100; 85007; 85025; 85027; 99285; G0480; J1200; J1630; J2060